=== PATIENT | male | born 1990 | race Caucasian/White ===

== ENCOUNTER 2019-06-19 13:51 | Emergency (ER) | payer BC, SELFPAY ==
[2019-06-19 13:52] VITALS: BP 155/73; PULSE 87; RESP 28; TEMP 36.7; O2SAT 97; BMI 44.1
--- NOTE | 2019-06-19 14:18 | ED.RN ---
pain started suddenly in right flank area. now wraps around lower abd
--- NOTE | 2019-06-19 14:28 | CT_ITS ---
STUDY: CT ABDOMEN AND PELVIS WITHOUT CONTRAST REASON FOR EXAM: Male, 29 years old. 2 hour history of nausea vomiting and constipation. RADIATION DOSAGE (If Supplied By Facility): CTDIvol = ( 24.18 ) mGy, DLP = ( 1371.27 ) mGycm TECHNIQUE: Transaxial images were obtained from the dome of the diaphragm to the symphysis pubis without oral contrast, and without intravenous contrast. Sagittal and coronal images were reconstructed. Individualized dose optimization techniques were used for this CT. COMPARISON: None. FINDINGS: The visualized lung bases are unremarkable. The visualized portions of the heart are within normal limits. There is decreased attenuation of the liver consistent with steatosis. Normal gallbladder and extrahepatic biliary system. Normal spleen. Normal pancreas. Normal bilateral adrenal glands. Mild to moderate degree of right hydronephrosis and right hydroureter due to a 4.3 mm calculus at the right ureterovesical junction. A punctate calcification is also seen in the lower pole calyx of the right kidney. Nonobstructive calculus in the midportion of the left kidney. There is dilatation of the left ureter. This may be reflective of vesicoureteral reflux. There is a small hiatal hernia. Normal small intestine. Normal colon. The appendix is visualized and appears normal. Normal abdominal aorta. Normal inferior vena cava. Normal retroperitoneum. Normal urinary bladder. There are prostatic calcifications. Normal abdominal wall. Normal osseous structures. CT/Abdomen/Pelvis without Cont IMPRESSION: 4.3 mm calculus at the right ureterovesical junction causing right hydronephrosis and hydroureter. Left hydroureter. Fatty infiltration of the liver. Electronically Signed: Ajit Wilks, at 15:20 EST , Service support ,
[2019-06-19] MEDS: Ondansetron 4 MG/2 ML Vial IV (14:36)
[2019-06-19] MEDS: Morphine 4 MG/ML Syringe IV (14:36)
--- NOTE | 2019-06-19 14:36 | ED.DCSUM_ITS ---
- ER Visit Summary Date of Service: 06/19/19 Chief Complaint: Right flank pain History of Present Illness: The patient is a 29 M presenting with right flank pain. He states this started 2 hours ago. Patient has severe pain in his right flank radiating to the right lower quadrant. He has nausea vomiting. No history of kidney stones. He is unable to sit still. Physical Examination: Vitals are stable. Patient is afebrile. Alert moderate acute distress. HEENT exam is unremarkable. Neck is supple. Lungs are clear and equal bilaterally. Heart is regular rate and rhythm. Abdomen is soft nontender nondistended. Back right CVA tenderness Extremities are unremarkable. Skin is warm and dry. No focal neurologic deficit. Remainder of exam is unremarkable. Emergency Department Course and Treatment: Patient was given morphine, Zofran IV. Urinalysis shows 0 white blood cells, over 100 red blood cells. Patient continues to have pain and was given Dilaudid IV. CT abdomen pelvis shows 4.3 mm calculus at the right ureterovesical junction causing right hydronephrosis and hydroureter. Left hydroureter. Fatty infiltration of the liver. Patient was given Toradol IV. On reevaluation his pain is controlled. He is given prescription for Percocet and Zofran. Advised to follow-up with urology. Advised return to ED for worsening complaints. Disposition: Discharge home Impression: Urolithiasis This note was generated with [employer] dictation software. It may contain incorrect words, spelling, and punctuation that were not noted in review of the chart prior to signing ED Disposition - Plan for ED Patient: Instructions: KIDNEY STONE w/ Colic Prescriptions: Oxycodone HCl/Acetaminophen [Percocet 5/325] 1 tab PO Q6H PRN PRN 3 Days #12 tab PRN Reason: Pain Prescription Printed Ondansetron [Zofran Odt] 4 mg PO Q8H PRN PRN #10 tab PRN Reason: Nausea Prescription Printed Referrals: Benja Marrufo MD [STAFF PHYSICIAN] - Gayathri Salinas NP-C [Primary Care Provider] -
[2019-06-19] MEDS: HYDROmorphone 1 MG/ML Syringe IV (15:08)
[2019-06-19] MEDS: Ketorolac 30 MG/ML Syringe IV (16:11)
[2019-06-19 16:17] VITALS: BP 188/90; PULSE 94; RESP 16; O2SAT 97
[2019-06-19 16:19] LABS: Mucous, Urine 0 SEEN /hpf (<or=2+); Squamous Epithelial Cells - UA 0 SEEN /hpf (0-5); White Blood Cells 0 SEEN /hpf (0-5)
[2019-06-19 16:24] LABS: Color, Urine Yellow (Yellow); Glucose, Dipstick Normal (Normal); Ketone-Dipstick Negative (Negative); Leukocyte Esterase-Dipstick Negative /ul (Negative); Nitrite-Dipstick Negative (Negative); Occult Blood-Urine 250 /ul (Negative); Protein-Dipstick 15 mg/dl (Negative); Specific Gravity, Urine 1.015 (1.002-1.030); Urine Bilirubin Dipstick Negative (Negative); Urine Clarity Cloudy (Clear); Urine Urobilinogen Normal (Normal)
[2019-06-19 16:42] LABS: Bacteria 1+ /hpf (None Seen); Red Blood Cells-Urine > 100 SEEN /hpf (0-5)
--- NOTE | 2019-06-19 17:16 | ED.DEP ---
ED Disposition - Plan for ED Patient: Instructions: KIDNEY STONE w/ Colic Prescriptions: Oxycodone HCl/Acetaminophen [Percocet 5/325] 1 tablet PO Q6H PRN PRN 3 Days #12 tablet PRN Reason: Pain Ondansetron [Zofran Odt] 4 mg PO Q8H PRN PRN #10 tablet PRN Reason: Nausea Referrals: Gayathri Salinas NP-C [Primary Care Provider] - Benja Marrufo MD [STAFF PHYSICIAN] -
[2019-06-19 17:26] VITALS: BP 146/87; PULSE 87; RESP 18; O2SAT 99
[2019-06-19 17:39] VITALS: BP 158/76; PULSE 66; RESP 16; O2SAT 95
== END 2019-06-19 17:37 | disposition home or self-care (01) ==
LOC: ED 14:38
PROVIDERS: Emergency Provider Emergency Medicine; Family Provider Nurse Practitioner Family; PCP Nurse Practitioner Family
DX: N13.2 Hydronephrosis with renal and ureteral calculous obstruction (principal)
CPT/HCPCS: 74176; 81001; 96374; 96375; 99283; A4216; J2405

== ENCOUNTER 2022-01-16 07:40 | Outpatient (RCR) | payer BC, SELFPAY | END 2022-02-08 23:59 | LOC: NS 07:40 | PROVIDERS: PCP Nurse Practitioner Family; Referring Provider Podiatrist Foot & Ankle Surgery; Visit Provider Podiatrist Foot & Ankle Surgery | DX: Z71.3 Dietary counseling and surveillance (principal); E66.01 Morbid (severe) obesity due to excess calories; Z68.42 Body mass index [BMI] 45.0-49.9, adult; M10.071 Idiopathic gout, right ankle and foot ==

== ENCOUNTER 2025-07-18 20:13 | Emergency (ER) | payer OTHER, SELFPAY ==
[2025-07-18 20:14] VITALS: BP 195/122; PULSE 100; RESP 18; TEMP 37; O2SAT 98; BMI 44.2
--- NOTE | 2025-07-18 20:37 | EX.ED.GUMALE ---
HPI History of Present Illness Chief Complaint: Male Pain/Injury Narrative Narrative: Chief complaint and HPI: 35-year-old male with past medical history of gout presents for evaluation of paraphimosis. Patient states that he retracted his foreskin behind the glans penis while taking a shower to clean it. He states that he was unable to retract his foreskin forward. He states has been about 3 hours. Endorses pain to the penis. He is still able to urinate. He denies any fever, chills, nausea, vomiting, testicular pain. Review of systems: See HPI Medications: As listed on the chart Allergies: As listed on the chart PFSH: Per chart Vital signs: As listed on the chart. Reviewed. Physical exam: Gen: Alert ENT: Moist mucous membranes CV: RRR, no murmurs Resp: Lungs CTA BL, no w/r/c GI: Abd soft, non-distended, non-tender, no r/r/g : Uncircumcised penis. Patient has swelling to the penile head and foreskin secondary to a paraphimosis. Tenderness where the swelling is located. No penile discharge or blood. No testicular pain or swelling. Normal lie and position of the testicles. No testicular tenderness, masses, or skin changes. No rashes. [facility] Medical History (Updated 05/22/22 @ 15:[address] Antelmo Mclaughlin MD) Request for sterilization Gout Home Medications ?Medication ?Instructions ?Recorded ?Last Taken ?Type colchicine 0.6 mg tablet 0.6 mg PO BID 05/22/22 Unknown History testosterone cypionate 200 mg/mL 60 mg IM 07/18/25 Unknown History intramuscular oil Allergy/AdvReac Type Severity Reaction Status Date / Time No Known Allergies Allergy Verified 07/18/25 20:16 Family History (Updated 05/22/22 @ 14:51 by Samantha Monique) Grandmother Heart disease High cholesterol Father Cancer skin cancer Surgical History (Updated 05/22/22 @ 14:42 by Samantha Monique) No history of previous surgery Social History (Updated 05/22/22 @ 14:43 by Samantha Monique) Smoking Status: Never smoker alcohol intake: current substance use type: does not use EXAM Physical Exam Const Vital Signs: 07/18/25 20:14 Temperature 98.6 F Temperature Source Temporal Pulse Rate 100 Respiratory Rate 18 Blood Pressure 195/122 H Blood Pressure Mean 146 Pulse Ox 98 Oxygen Delivery Method Room Air MDM MDM MDM Narrative Medical decision making narrative: 35-year-old male with past medical history of gout presents for evaluation of paraphimosis. Patient states that he retracted his foreskin behind the glans penis while taking a shower to clean it. He states that he was unable to retract his foreskin forward. He states has been about 3 hours. Endorses pain to the penis. See physical exam findings. Patient has a paraphimosis. I originally tried to retract the foreskin over the glans penis but was unable to. I offered pain medicine before attempting swelling reduction with handgrip. Patient declined pain medicine. I firmly grasp the patient's penis and applied pressure to decrease swelling. After several minutes, I was able to decrease the swelling and was able to retract the foreskin over the glans penis. Patient's pain resolved with this. the glans penis is still mildly swollen. Will obtain UA to assess for UTI and make sure that the patient can urinate prior to discharge home. Will reach out to urology for any further recommendations. I spoke with Dr. Marrufo. No further recommendations at this time although he states that the patient should not retract his foreskin until the swelling improves. Patient was updated of the results by the urologist. Patient was able to urinate and awaiting UA. Patient stated that he wanted to leave and did not want to stay for results. I did recommend him staying for the UA results. He confirmed understanding and agreed. Shortly after I was informed by nursing staff that patient had eloped. On chart review, UA did result positive for blood but was negative for UTI. Impression: 1. Paraphimosis, reduced 2. Elopement Lab Data Labs: Laboratory Results - last 24 hr 07/18/25 21:37 Urine Color Yellow Urine Clarity Clear Urine pH 6.0 Ur Specific Mustang 1.020 Urine Protein 15 H Urine Glucose (UA) Normal Urine Ketones Negative Urine Occult Blood 10 H Urine Nitrite Negative Urine Bilirubin Negative Urine Urobilinogen Normal Ur Leukocyte Esterase Negative Urine RBC 0-5 SEEN Urine WBC 0-5 SEEN Ur Squamous Epith Cells 0 SEEN Urine Bacteria 0 SEEN Urine Mucus 0 SEEN Discharge Plan Triage Chief Complaint: Male Pain/Injury ED Provider: Neftaly Merino Dx/Rx/DC Orders Prescriptions: No Action colchicine 0.6 mg tablet 0.6 mg PO BID testosterone cypionate 200 mg/mL oil 60 mg IM Primary Care Provider: Care Physician,No Primary Referrals: Gayathri Salinas NP, [employer] [facility] [Non-Staff, Family Practice] Print Language: Yi Disposition Disposition: Elopement Discharge Date/Time: 07/18/25 21:53
--- OUTSIDE RECORDS SUMMARY | 2025-07-18 20:49 | XMS RPT_ITS | CCD ---
Author Organization [facility] Care Team Providers Care Manager Requirements Name Role Phone Gayathri Salinas Primary Care Unavailable SuppanEdilson Referring Unavailable SuppanEdilson Attending Unavailable Gayahtri Salinas Primary Care Unavailable Suppan Edilson Referring Unavailable SuppanIrvingEdilson Attending Unavailable Gayathri Salinas Primary Care Unavailable Antelmo Mclaughlin Attending Unavailable Gayathri Salinas Referring Unavailable Unavailable Primary Care Provider Gayathri Alcaraz (Software Quality Engineer) Primary Care Provider [phone] JOHNY, AMBREESH Referring Unavailable ABDELRAHMAN ARANDAREESJeaneth Attending Unavailable JOHNY AMBREESH Referring Unavailable GAYATHRI SALINAS (PLASTIC BOAT BUFFER) Primary Care GAYATHRI Alcaraz (PLASTIC BOAT BUFFER) Primary Care [place] PLASTIC BOAT BUFFERGayathri Primary Care Provider Allergies Allergy Classification Reported Allergen(s) Allergy Type Date of Onset Reaction(s) Facility (14 sources) Pollen; Translations: [POLLEN] Propensity to adverse reactions 6 Other: See Comments [facility] Medications Current Medications Medication Drug Class(es) Dates Sig (Normalized) Sig (Original) allopurinol 300 mg oral tablet (15 sources) Xanthine Oxidase Inhibitor Start: 10-06-2024 take 1 tablet by mouth once daily allopurinol (ZYLOPRIM) 300 mg tablet Take 1 tablet by mouth once daily. 90 tablet 1 10/06/2024 Active Start: 05-28-2023 End: 10-04-2024 take 1 tablet by mouth once daily allopurinol (ZYLOPRIM) 300 mg tablet Take 1 tablet by mouth once daily. 90 tablet 1 05/28/2023 10/04/2024 Discontinued Start: 01-10-2023 End: 09-24-2023 take 2 tablets by mouth once daily allopurinol (ZYLOPRIM) 100 mg tablet Indications: Acute idiopathic gout, unspecified site Take 2 tablets by mouth once daily. 60 tablet 0 03/28/2023 09/24/2023 Active Start: 08-29-2022 End: 02-25-2023 take 1 tablet by mouth once daily allopurinol (ZYLOPRIM) 100 mg tablet Take 1 tablet by mouth once daily. 90 tablet 1 08/29/2022 01/09/2023 Discontinued Comment on above: Take 1 tablet by nikita once daily. Take 2 tablets by mo [facility] once daily. colchicine 0.6 mg oral tablet (11 sources) Start: 3 End: 4 take 1 tablet by mouth once daily colchicine 0.6 mg tablet Take 1 tablet by mouth once daily. 30 tablet 2 05/21/2023 Active Comment on above: Take 1 tablet by nikita once daily. Take 1 tablet by nikita once daily ondansetron 4 mg disintegrating oral tablet (1 source) Serotonin-3 Receptor Antagonist Start: 9 take 4 mg by mouth every eight hours as needed Ondansetron Active 4 MG PO EVERY 8 HOURS NEEDED June 19, 2019 1:00am predniSONE 10 mg oral tablet (6 sources) Start: 3 End: 3 take 3 tablets by mouth once daily, then take 2 tablets by mouth once daily, then take 1 tablet by mouth once daily, then take 0.5 tablet by mouth once daily predniSONE (DELTASONE) 10 mg tablet Take 3 tablets by mouth once daily for 3 days, THEN 2 tablets once daily for 3 days, THEN 1 tablet once daily for 3 days, THEN 0.5 tablets once daily for 3 days. 20 tablet 0 05/21/2023 06/02/2023 Active Start: 11-07-2022 End: 11-19-2022 take 6 tablets by mouth once daily, then take 4 tablets by mouth once daily, then take 2 tablets by mouth once daily, then take 1 tablet by mouth once daily predniSONE (DELTASONE) 5 mg tablet Take 6 tablets by mouth once daily for 3 days, THEN 4 tablets once daily for 3 days, THEN 2 tablets once daily for 3 days, THEN 1 tablet once daily for 3 days. 39 tablet 0 11/07/2022 11/19/2022 Active Start: 08-27-2022 End: 09-16-2022 take 4 tablets by mouth once daily, then take 3 tablets by mouth once daily, then take 2 tablets by mouth once daily, then take 1 tablet by mouth once daily predniSONE (DELTASONE) 5 mg tablet Take 4 tablets by mouth once daily for 5 days, THEN 3 tablets once daily for 5 days, THEN 2 tablets once daily for 5 days, THEN 1 tablet once daily for 5 days. 50 tablet 0 08/27/2022 09/16/2022 Active Comment on above: Take 4 tablets by mo ut once daily for 5 days, THEN 3 tablets once daily for 5 days, THEN 2 tablets once daily for 5 days, THEN 1 tablet once daily for 5 days. Take 6 tablets by mo ut once daily for 3 days, THEN 4 tablets once daily for 3 days, THEN 2 tablets once daily for 3 days, THEN 1 tablet once daily for 3 days. Take 3 tablets by mo ut once daily for 3 days, THEN 2 tablets once daily for 3 days, THEN 1 tablet once daily for 3 days, THEN 0.5 tablets once daily for 3 days. 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] Onset: 11-25-2023 Chronic Disorders of lipid metabolism (3 sources) Hyperlipidemia, unspecified; Translations: [Pure hyperglyceridemia] Onset: 10-14-2023 Chronic Gout and other crystal arthropathies (9 sources) Primary gout; Translations: [Idiopathic gout, unspecified site] Onset: 05-21-2023 Chronic Malaise and fatigue (1 source) Chronic fatigue, unspecified; Translations: [Chronic fatigue] Onset: 11-25-2023 Chronic Mood disorders (1 source) Major depressive disorder, recurrent, unspecified; Translations: [Chronic recurrent major depressive disorder (HCC)] Onset: 11-25-2023 Chronic Nutritional deficiencies (1 source) Vitamin D deficiency, unspecified; Translations: [Avitaminosis D] Onset: 11-25-2023 Chronic Other connective tissue disease (4 sources) History of clinical finding in subject; Translations: [Personal history of other diseases of the musculoskeletal system and connective tissue] Episodic Other endocrine disorders (1 source) Testicular hypofunction; 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] Onset: 11-25-2023 Chronic Other endocrine disorders (1 source) Endocrine disorder, unspecified; Translations: [Unspecified endocrine disorder] Onset: 02-07-2024 Episodic Other male genital disorders (1 source) Male erectile dysfunction, unspecified; Translations: [Impotence of organic origin] Onset: 11-25-2023 Chronic Other male genital disorders (1 source) Unspecified male sexual dysfunction; Translations: [Male coital disorder] Onset: 11-25-2023 Episodic Other non-traumatic joint disorders (6 sources) Multiple joint pain; Translations: [Pain in unspecified joint] Episodic Other nutritional; endocrine; and metabolic disorders (2 sources) Morbid (severe) obesity due to excess calories; Translations: [Morbid (severe) obesity due to excess calories] Onset: 02-09-2022 Chronic Other nutritional; endocrine; and metabolic disorders (1 source) Obesity, unspecified; Translations: [Lifelong obesity] Onset: 02-07-2024 Chronic Other nutritional; endocrine; and metabolic disorders (1 source) Abnormal weight gain; Translations: [Abnormal weight gain] Onset: 11-25-2023 Episodic Other skin disorders (1 source) Nonscarring hair loss, unspecified; Translations: [Baldness] Onset: 11-25-2023 Episodic Residual codes; unclassified (1 source) Insomnia, unspecified; Translations: [Persistent disorder of initiating or maintaining sleep] Onset: 11-25-2023 Episodic Residual codes; unclassified (1 source) Decreased libido; Translations: [Decreased libido] Onset: 11-25-2023 Episodic Residual codes; unclassified (1 source) Other amnesia; Translations: [Memory loss] Onset: 11-25-2023 Episodic Screening and history of mental health and substance abuse codes (2 sources) Tobacco smoking behavior - finding; Translations: [Personal history of nicotine dependence] Episodic Viral infection (1 source) Viral disease; Translations: [Viral infection, unspecified] 12-04-2023 Episodic Past or Other Problems Problem Classification Problem Date Documented Da te Episodic/Chronic Administrative/social admission (2 sources) Dietary counseling and surveillance; Translations: [Dietary counseling and surveillance] Onset: 02-09-2022 Episodic Other non-traumatic joint disorders (1 source) Pain in unspecified joint; Translations: [Pain in joint, multiple sites] Onset: 05-21-2023 Episodic Results Test Name Value Interpretation Reference Range Facility 25(OH)D3 [facility] 2023 25-hydroxyvitamin D3 [Mass/Vol] 38.4 ng/mL Normal 31.0-80.0 [facility] Comment on above: Order Comment: Lili quinones Type: BLOOD SPECIMEN Ordering Facility: External Submitter Address: , , Result Comment: Clas sification of 25 OH Vitamin D status: Deficiency/Insufficiency: < or = 30 ng/ml. Sufficiency/Optimal Levels: 31-80 ng/mL Toxicity: > 100 ng/mL. Test performed by chemiluminescent immunoassay. Performed By: #### 5 8410-2 #### [facility] CLIA [id number] [address] [place] [address] [place] CBC panel Auto (Bld)on 02-06 Erythrocyte distribution width (RBC) [Ratio] 14.6 % Normal 11.5-15.0 [facility] Comment on above: Order Comment: Lili quinones Type: BLOOD SPECIMEN Ordering Facility: External Submitter Address: , , Performed By: #### 5 8410-2 #### [facility] CLIA [id number] [address] [place] [address] [place] Hematocrit (Bld) [Volume fraction] 54.4 % High 39.0-51.0 [facility] Comment on above: Order Comment: Lili quinones Type: BLOOD SPECIMEN Ordering Facility: External Submitter Address: , , Performed By: #### 5 8410-2 #### [facility] CLIA [id number] [address] [place] [address] [place] Hemoglobin (Bld) [Mass/Vol] 17.3 g/dL High 13.0-17.0 [facility] Comment on above: Order Comment: Speci men Type: BLOOD SPECIMEN Ordering Facility: External Submitter Address: , , Performed By: #### 5 8410-2 #### [facility] CLIA [id number] [address] [place] [address] [place] MCH (RBC) [Entitic mass] 26.5 pg Normal 26.0-34.0 [facility] Comment on above: Order Comment: Speci men Type: BLOOD SPECIMEN Ordering Facility: External Submitter Address: , , Performed By: #### 5 8410-2 #### [facility] CLIA [id number] [address] [place] [address] [place] MCHC (RBC) [Mass/Vol] 31.8 g/dL Normal 30.5-36.0 [facility] Comment on above: Order Comment: Speci men Type: BLOOD SPECIMEN Ordering Facility: External Submitter Address: , , Performed By: #### 5 8410-2 #### [facility] CLIA [id number] [address] [place] [address] [place] MCV (RBC) [Entitic vol] 83.3 fL Normal 80.0-100.0 [facility] Comment on above: Order Comment: Speci men Type: BLOOD SPECIMEN Ordering Facility: External Submitter Address: , , Performed By: #### 5 8410-2 #### [facility] CLIA [id number] [address] [place] [address] [place] Nucleated RBC (Bld) [#/Vol] 10*3/uL Normal <0.01 [facility] Comment on above: Order Comment: Speci men Type: BLOOD SPECIMEN Ordering Facility: External Submitter Address: , , Performed By: #### 5 8410-2 #### [facility] CLIA [id number] [address] [place] [address] [place] Platelet mean volume (Bld) [Entitic vol] 12.4 fL Normal 9.0-12.7 [facility] Comment on above: Order Comment: Speci men Type: BLOOD SPECIMEN Ordering Facility: External Submitter Address: , , Performed By: #### 5 8410-2 #### [facility] CLIA [id number] [address] [place] [address] [place] Platelets (Bld) [#/Vol] 217 10*3/uL Normal 150-400 [facility] Comment on above: Order Comment: Speci men Type: BLOOD SPECIMEN Ordering Facility: External Submitter Address: , , Performed By: #### 5 8410-2 #### [facility] CLIA [id number] [address] [place] [address] [place] RBC (Bld) [#/Vol] 6.53 10*6/uL High 4.20-6.00 [facility] Comment on above: Order Comment: Speci men Type: BLOOD SPECIMEN Ordering Facility: External Submitter Address: , , Performed By: #### 5 8410-2 #### [facility] CLIA [id number] [address] [place] [address] [place] WBC (Bld) [#/Vol] 8.27 10*3/uL Normal 3.70-11.00 [facility] Comment on above: Order Comment: Speci men Type: BLOOD SPECIMEN Ordering Facility: External Submitter Address: , , Performed By: #### 5 8410-2 #### [facility] CLIA [id number] [address] [place] [address] [place] Comprehensive metabolic 2000 panelon 02-07-2024 Albumin [Mass/Vol] 4.4 g/dL Normal 3.9-4.9 [facility] Comment on above: Order Comment: Speci men Type: BLOOD SPECIMEN Ordering Facility: External Submitter Address: , , Performed By: #### 5 8410-2 #### [facility] CLIA [id number] [address] [place] [address] [place] ALP [Catalytic activity/Vol] 67 U/L Normal 38-113 [facility] Comment on above: Order Comment: Speci men Type: BLOOD SPECIMEN Ordering Facility: External Submitter Address: , , Performed By: #### 5 8410-2 #### [facility] CLIA [id number] [facility] [place] [address] [place] ALT [Catalytic activity/Vol] 18 U/L Normal 10-54 [facility] Comment on above: Order Comment: Speci men Type: BLOOD SPECIMEN Ordering Facility: External Submitter Address: , , Performed By: #### 5 8410-2 #### [facility] CLIA [id number] [address] [place] [address] [place] Anion gap [Moles/Vol] 10 mmol/L Normal 8-15 [facility] Comment on above: Order Comment: Speci men Type: BLOOD SPECIMEN Ordering Facility: External Submitter Address: , , Performed By: #### 5 8410-2 #### [facility] CLIA [id number] [address] [place] [address] [place] AST [Catalytic activity/Vol] 19 U/L Normal 14-40 [facility] Comment on above: Order Comment: Speci men Type: BLOOD SPECIMEN Ordering Facility: External Submitter Address: , , Performed By: #### 5 8410-2 #### [facility] CLIA [id number] [address] [place] [address] [place] Bilirubin [Mass/Vol] 0.5 mg/dL Normal 0.2-1.3 [facility] Comment on above: Order Comment: Speci men Type: BLOOD SPECIMEN Ordering Facility: External Submitter Address: , , Performed By: #### 5 8410-2 #### [facility] CLIA [id number] [address] [place] [address] [place] Calcium [Mass/Vol] 10.0 mg/dL Normal 8.5-10.2 [facility] Comment on above: Order Comment: Keeshai joni Type: BLOOD SPECIMEN Ordering Facility: External Submitter Address: , , Performed By: #### 5 8410-2 #### [facility] CLIA [id number] [address] [place] [address] [place] Chloride [Moles/Vol] 101 mmol/L Normal 98-107 [facility] Comment on above: Order Comment: Speci men Type: BLOOD SPECIMEN Ordering Facility: External Submitter Address: , , Performed By: #### 5 8410-2 #### [facility] CLIA [id number] [address] [place] [address] [place] CO2 [Moles/Vol] 26 mmol/L Normal 22-30 [facility] Comment on above: Order Comment: Keeshai men Type: BLOOD SPECIMEN Ordering Facility: External Submitter Address: , , Performed By: #### 5 8410-2 #### [facility] CLIA [id number] [address] [place] [address] [place] Creatinine [Mass/Vol] 0.98 mg/dL Normal 0.73-1.22 [facility] Comment on above: Order Comment: Keeshai joni Type: BLOOD SPECIMEN Ordering Facility: External Submitter Address: , , Performed By: #### 5 8410-2 #### [facility] CLIA [id number] [address] [place] [address] [place] Creatinine and Glomerular filtration rate.predicted panel (S/P/Bld) 104 mL/min/1.73m??? Normal >=60 [facility] Comment on above: Order Comment: Lili quinones Type: BLOOD SPECIMEN Ordering Facility: External Submitter Address: , , Result Comment: Zunilda mated Glomerular Filtration Rate (eGFR) is calculated using the 2020 CKD-EPI creatinine equation. This equation utilizes serum creatinine, sex, and age as parameters. The creatinine assay has traceable calibration to isotope dilution-mass spectrometry. Refer to KDIGO guidelines for clinical interpretation. In patients with unstable renal function, e.g. those with acute kidney injury, the eGFR may not accurately reflect actual GFR. Performed By: #### 5 8410-2 #### [facility] CLIA [id number] [address] [place] [address] [place] Glucose [Mass/Vol] 89 mg/dL Normal 74-99 [facility] Comment on above: Order Comment: Lili quinones Type: BLOOD SPECIMEN Ordering Facility: External Submitter Address: , , Result Comment: The [place] Diabetes [employer] (ADA) provides guidance for cutoff values for fasting glucose and random glucose. The ADA defines fasting as no caloric intake for at least 8 hours. Fasting plasma glucose results between 100 to 125 mg/dL indicate increased risk for diabetes (prediabetes). Fasting plasma glucose results greater than or equal to 126 mg/dL meet the criteria for diagnosis of diabetes. In the absence of unequivocal hyperglycemia, results should be confirmed by repeat testing. In a patient with classic symptoms of hyperglycemia or hyperglycemic crisis, random plasma glucose results greater than or equal to 200 mg/dL meet the criteria for diagnosis of diabetes. Reference: Standards of Medical Care in Diabetes 2016, [place] [employer]. Diabetes Care. 2016.39(Suppl 1). Performed By: #### 5 8410-2 #### [facility] CLIA [id number] [address] [place] [address] [place] Potassium [Moles/Vol] 4.9 mmol/L Normal 3.7-5.1 [facility] Comment on above: Order Comment: Lili quinones Type: BLOOD SPECIMEN Ordering Facility: External Submitter Address: , , Performed By: #### 5 8410-2 #### [facility] CLIA [id number] [address] [place], [place] [id number] [place] Protein [Mass/Vol] 7.1 g/dL Normal 6.3-8.0 [facility] Comment on above: Order Comment: Lili quinones Type: BLOOD SPECIMEN Ordering Facility: External Submitter Address: , , Performed By: #### 5 8410-2 #### [facility] CLIA [id number] [address] [place] [id number] [place] Sodium [Moles/Vol] 137 mmol/L Normal 136-144 [facility] Comment on above: Order Comment: Speci men Type: BLOOD SPECIMEN Ordering Facility: External Submitter Address: , , Performed By: #### 5 8410-2 #### [facility] CLIA [id number] [address] [place] [address] [place] Urea nitrogen [Mass/Vol] 19 mg/dL Normal 9-24 [facility] Comment on above: Order Comment: Speci men Type: BLOOD SPECIMEN Ordering Facility: External Submitter Address: , , Performed By: #### 5 8410-2 #### [facility] CLIA [id number] [address] [place] [address] [place] Estradiol [facility] 02-06 E2 [Mass/Vol] 27 pg/mL Normal <38 [facility] Comment on above: Order Comment: Speci men Type: BLOOD SPECIMEN Ordering Facility: External Submitter Address: , , Result Comment: This test is not suitable for patients receiving treatment with the drug Fulvestrant (Faslodex). The drug causes an interference leading to falsely elevated estradiol results. Performed By: #### 5 8410-2 #### [facility] CLIA [id number] [address] [place] [address] [place] Lipid 1996 panelon 4 Cholesterol [Mass/Vol] 212 mg/dL High <200 [facility] Comment on above: Order Comment: Speci men Type: BLOOD SPECIMEN Ordering Facility: External Submitter Address: , , Result Comment: <200 mg/dL, Desirable 200-239 mg/dL, Borderline high >239 mg/dL, High Performed By: #### 5 8410-2 #### [facility] CLIA [id number] [address] [place] [address] [place] Cholesterol in HDL [Mass/Vol] 24 mg/dL Low >39 [facility] Comment on above: Order Comment: Lili quinones Type: BLOOD SPECIMEN Ordering Facility: External Submitter Address: , , Result Comment: 40-5 9 mg/dL, Acceptable >59 mg/dL, High: Negative risk factor for coronary heart disease <40 mg/dL, Low: Positive risk factor for coronary heart disease Performed By: #### 5 8410-2 #### [facility] CLIA [id number] [address] [place] [address] [place] Cholesterol in LDL [Mass/Vol] 136 mg/dL High <100 [facility] Comment on above: Order Comment: Lili quinones Type: BLOOD SPECIMEN Ordering Facility: External Submitter Address: , , Result Comment: <100 mg/dL, Optimal 100-129 mg/dL, Near optimal/above optimal 130-159 mg/dL, Borderline high 160-189 mg/dL, High >189 mg/dL, Very high Secondary prevention optimal LDL Cholesterol levels are recommended to be < 70 mg/dL Performed By: #### 5 8410-2 #### [facility] CLIA [id number] [address] [place] [address] [place] Cholesterol in LDL/Cholesterol in HDL [Mass ratio] 5.67 {ratio} High <2.54 [facility] Comment on above: Order Comment: Lili quinones Type: BLOOD SPECIMEN Ordering Facility: External Submitter Address: , , Result Comment: Reffer mir: 1. National Cholesterol Education Program ATP III Guideline At-A-Glance Quick Desk Reference: National Heart, Lung, and Blood [place]. National Institutes of Health. 2001: NIH Publication No. 01-3305. 2. An International Atherosclerosis Society position paper: global recommendations for the management of dyslipidemia: executive summary, Atherosclerosis. 2014: 232(2):410-413. Performed By: #### 5 8410-2 #### [facility] CLIA [id number] [address] [place] [id number] [place] Cholesterol in VLDL [Mass/Vol] 52 mg/dL High <30 [facility] Comment on above: Order Comment: Speci men Type: BLOOD SPECIMEN Ordering Facility: External Submitter Address: , , Performed By: #### 5 8410-2 #### [facility] CLIA [id number] [address] [place] [address] [place] Cholesterol non HDL [Mass/Vol] 188 mg/dL High <130 [facility] Comment on above: Order Comment: Speci men Type: BLOOD SPECIMEN Ordering Facility: External Submitter Address: , , Result Comment: <130 mg/dL, Optimal 130-159 mg/dL, Near optimal/above optimal 160-189 mg/dL, Borderline high 190-219 mg/dL, High >219 mg/dL, Very high Secondary prevention optimal non HDL Cholesterol levels are recommended to be <100 mg/dL Performed By: #### 5 8410-2 #### [facility] CLIA [id number] [address] [place] [address] [place] Cholesterol.total /Cholesterol in HDL [Mass ratio] 8.83 {ratio} High <5.10 [facility] Comment on above: Order Comment: Speci men Type: BLOOD SPECIMEN Ordering Facility: External Submitter Address: , , Performed By: #### 5 8410-2 #### [facility] CLIA [id number] [address] [place] [address] [place] FASTING TIME 12 hrs Normal [facility] Comment on above: Order Comment: Speci men Type: BLOOD SPECIMEN Ordering Facility: External Submitter Address: , , Performed By: #### 5 8410-2 #### [facility] CLIA [id number] [address] [place] [address] [place] Triglyceride [Mass/Vol] 261 mg/dL High <150 [facility] Comment on above: Order Comment: Speci men Type: BLOOD SPECIMEN Ordering Facility: External Submitter Address: , , Result Comment: <150 mg/dL, Normal 150-199 mg/dL, Borderline high 200-499 mg/dL, High >499 mg/dL, Very high Performed By: #### 5 8410-2 #### [facility] CLIA [id number] [facility] [place] [address] [place] PSA SerPl-mCncon 02-07-2024 Prostate specific Ag [Mass/Vol] 0.60 ng/mL Normal <2.60 [facility] Comment on above: Order Comment: Speci men Type: BLOOD SPECIMEN Ordering Facility: External Submitter Address: , , Result Comment: Tota l PSA test methodology used is the Electrochemiluminescence Immunoassay by [employer]. Total PSA values by differing methodologies cannot be interchanged. Performed By: #### 5 8410-2 #### [facility] IA [id number] [address] [place] [address] [place] T3Free SerPl-mCncon 02-07-20 Free T3 [Mass/Vol] 2.8 pg/mL Normal 2.3-4.1 [facility] Comment on above: Order Comment: Speci men Type: BLOOD SPECIMEN Ordering Facility: External Submitter Address: , , Performed By: #### 5 8410-2 #### [facility] IA [id number] [address] [place] [address] [place] T4 Free SerPl-mCncon 024 Free T4 [Mass/Vol] 1.2 ng/dL Normal 0.9-1.7 [facility] Comment on above: Order Comment: Speci men Type: BLOOD SPECIMEN Ordering Facility: External Submitter Address: , , Performed By: #### 5 8410-2 #### [facility] IA [id number] [address] [place] [address] [place] TESTOSTERONE, FREE AND TOTAL on 02-07-2024 TESTOSTERONE, FREE, S 25.0 ng/dL High 4.85-19.0 [facility] Comment on above: Order Comment: Speci men Type: BLOOD SPECIMEN Ordering Facility: External Submitter Address: , , Result Comment: ADDITIONAL INFORMATION This test was developed and its performance characteristics determined by [facility] in a manner consistent with CLIA requirements. This test has not been cleared or approved by the U.S. Food and Drug Administration. Performed By: #### 5 8410-2 #### [facility] CLIA [id number] [address] [place] [address] [place] TESTOSTERONE, TOTAL, S 653 ng/dL Normal 240-950 [facility] Comment on above: Order Comment: Speci men Type: BLOOD SPECIMEN Ordering Facility: External Submitter Address: , , Result Comment: ADDITIONAL INFORMATION Testing performed by Liquid Chromatography-Tandem Mass Spectrometry (LC-MS/MS). This test was developed and its performance characteristics determined by [facility] in a manner consistent with CLIA requirements. This test has not been cleared or approved by the U.S. Food and Drug Administration. Test Performed by: [place] [address] [employer] Reviewer: Derek Viera Ph.D.; CLIA# [id number] Performed By: #### 5 8410-2 #### [facility] CLIA [id number] [address] [place] [address] [place] THYROID PEROXIDASE ANTIBODYo n 02-07-2024 TPO Ab Qn 168.4 [IU]/mL High <5.6 [facility] Comment on above: Order Comment: Specflavio quinones Type: BLOOD SPECIMEN Ordering Facility: External Submitter Address: , , Result Comment: Thyr oid Peroxidase Antibody test is used as an aid in diagnosis of autoimmune thyroid disease. Clinical correlation is required. Performed By: #### M ICRO #### [facility] CLIA [id number] [address] [place] [address] [place] TSH SerPl-aCncon 02-07-2024 TSH Qn 1.930 m[IU]/L Normal 0.270-4.200 [facility] Comment on above: Order Comment: Lili quinones Type: BLOOD SPECIMEN Ordering Facility: External Submitter Address: , , Performed By: #### 5 8410-2 #### [facility] CLIA [id number] [address] [place] [address] OF [facility] Vit B12 SerPl-ncon 0628-2 024 Cobalamin (Vitamin B12) [Mass/Vol] 572 pg/mL Normal 232-1245 [facility] Comment on above: Order Comment: Speci joni Type: BLOOD SPECIMEN Ordering Facility: External Submitter Address: , , Performed By: #### 5 8410-2 #### [facility] CLIA [id number] [address] [place] [address] OF [facility] CNOVon 12-04-2023 CNOV Office Visit (UCWSTR ) UBALDO REHMAN ([id number]) 1990 M Date Time Provider Department 12/04/23 1:45 PM LAM SOSA [facility] During your visit today, we recorded the following information about you: Temperature Pulse Respiration Blood pressure 97.6 degrees 87/minute 21/minute 154/100 Weight 131.3 kg Lam Sosa PA-C 12/04/2023 2:00 PM Signed This note was created using 25eightriter. Subjective Ubaldo Rehman is a 33 year old male. HPI Patient presents with sore throat and headache since this morning. He is also had a cough. Denies nasal congestion or ear pain. No vomiting or diarrhea. No chest pain or shortness of breath. No abdominal pain. His friend had strep throat recently so he just wanted to come in and be tested. No OTC meds used. Review of Systems Constitutional: Negative. HENT: Positive for sore throat. Negative for congestion, ear pain, rhinorrhea, sinus pressure and sinus pain. Respiratory: Positive for cough. Genitourinary: Negative. Musculoskeletal: Negative. Neurological: Positive for headaches. All other systems reviewed and are negative. PAST MEDICAL HISTORY Diagnosis Date concussion 8th grade fell off horse PMH - PAST MEDICAL HISTORY OF 03/29/2000 normal color vision PMH - PAST MEDICAL HISTORY OF 09/2002 glasses/speech therapy PMH - PAST MEDICAL HISTORY OF 7th grade left ankle torn ligaments PMH - PAST MEDICAL HISTORY OF 8th grade right wrist injury Current Outpatient Medications Medication Sig Dispense Refill allopurinol (ZYLOPRIM) 300 mg tablet Take 1 tablet by mouth once daily. 90 tablet 1 colchicine 0.6 mg tablet Take 1 tablet by mouth once daily. 30 tablet 2 No current facility-administered medications for this visit. PAST SURGICAL HISTORY Procedure Laterality Date NONE FAMILY HISTORY Problem Relation Age of Onset Arthritis Paternal Grandmother Hypertension Maternal Grandmother Heart Maternal Grandmother Emphysema Maternal Grandfather Social History Tobacco Use Smoking status: Former Types: Cigarettes Quit date: 08/04/2009 Years since quittin.3 Smokeless tobacco: Never Tobacco comments: cigars occasionally 1/wk Substance Use Topics Alcohol use: Yes Alcohol/week: 6.0 standard drinks of alcohol Types: 6 Cans of Beer (12oz) per week Drug use: No Objective BP 154/100 Pulse 87 Temp 36.4 ?C (97.6 ?F) Resp 21 Wt 131.3 kg (289 lb 7.4 oz) SpO2 98% BMI 44.01 kg/m? Physical Exam Vitals reviewed. Constitutional: Appearance: Normal appearance. HENT: Head: Normocephalic and atraumatic. Right Ear: Tympanic membrane, ear canal and external ear normal. Left Ear: Tympanic membrane, ear canal and external ear normal. Nose: Nose normal. Mouth/Throat: Mouth: Mucous membranes are moist. Pharynx: Posterior oropharyngeal erythema present. No oropharyngeal exudate. Cardiovascular: Rate and Rhythm: Normal rate and regular rhythm. Heart sounds: Normal heart sounds. Pulmonary: Effort: Pulmonary effort is normal. Breath sounds: Normal breath sounds. Musculoskeletal: Cervical back: Neck supple. Skin: General: Skin is warm and dry. Findings: No rash. Neurological: Mental Status: He is alert. Assessment and Plan ASSESSMENT/PLAN: 1. Viral illness - ICD9: 079.99, ICD10: B34.9 - Discussed viral etiology and rationale for treatment. - Group A strep molecular testing negative - Symptomatic treatment with prn analgesia - Supportive care with fluids and rest - The patient may also use warm salt water gargles, throat lozenges and/or OTC throat spray as needed. - Follow up in 3-5 days if symptoms persist or sooner if worsening of symptoms Lam Sosa PA-C Allergies As of Date: 12/04/2023 Noted Allergy Reaction POLLEN 03/12/2006 14 - Other: See Comments Comments: runny nose, watery eyes Date Reviewed: 12/04/2023 Reviewed by: Jyoti Calvo MA - Fully Assessed Reason for Visit: Sore Throat [200] Cmt: SHERMAN started today Primary Visit Diagnosis:Viral illness [B34.9] Order(s):STREP A MOLECULAR (POC) [0803054] Order #: [id number]. #:[id number] Prescriptions as of 12/04/2023 - allopurinol (ZYLOPRIM) 300 mg tablet Take 1 tablet by mouth once daily. - colchicine 0.6 mg tablet Take 1 tablet by mouth once daily. Problem List As Of Date: 12/04/2023 (None) Encounter Status:Closed by LAM SOSA on 12/04/23 Normal [facility] STREP A MOLECULAR (POC)on Procedural Control Valid [facility] Strep A (POCT) Negative Negative [facility] CBC panel Auto (Bld)on 11-24 Erythrocyte distribution width (RBC) [Ratio] 14.6 % Normal 11.5-15.0 [facility] Comment on above: Order Comment: Lili quinones Type: BLOOD SPECIMEN Ordering Facility: [facility] Address: [address] [place] [address] Performed By: #### 5 7021-8 #### [facility] CLIA [id number] [facility] [address] [place] Hematocrit (Bld) [Volume fraction] 51.4 % High 39.0-51.0 [facility] Comment on above: Order Comment: Specflavio quinones Type: BLOOD SPECIMEN Ordering Facility: [facility] Address: [address] [place] [address] Performed By: #### 5 7021-8 #### [facility] CLIA [id number] [address] [place] [address] [place] Hemoglobin (Bld) [Mass/Vol] 16.5 g/dL Normal 13.0-17.0 [facility] Comment on above: Order Comment: Speci men Type: BLOOD SPECIMEN Ordering Facility: [facility] Address: [address] [place] [address] Performed By: #### 5 7021-8 #### [facility] CLIA [id number] [address] [place] [address] [place] MCH (RBC) [Entitic mass] 26.7 pg Normal 26.0-34.0 [facility] Comment on above: Order Comment: Speci men Type: BLOOD SPECIMEN Ordering Facility: [facility] Address: [address] [place] [address] Performed By: #### 5 7021-8 #### [facility] CLIA [id number] [address] [place] [address] [place] MCHC (RBC) [Mass/Vol] 32.1 g/dL Normal 30.5-36.0 [facility] Comment on above: Order Comment: Speci men Type: BLOOD SPECIMEN Ordering Facility: [facility] Address: [address] [place] [address] Performed By: #### 5 7021-8 #### [facility] CLIA [id number] [address] [place] [address] [place] MCV (RBC) [Entitic vol] 83.3 fL Normal 80.0-100.0 [facility] Comment on above: Order Comment: Speci men Type: BLOOD SPECIMEN Ordering Facility: [facility] Address: [address] [place] [address] Performed By: #### 5 7021-8 #### [facility] CLIA [id number] [address] [place] [address] [place] Nucleated RBC (Bld) [#/Vol] 10*3/uL Normal <0.01 [facility] Comment on above: Order Comment: Speci men Type: BLOOD SPECIMEN Ordering Facility: [facility] Address: [address] [place] [address] Performed By: #### 5 7021-8 #### [facility] CLIA [id number] [address] [place] [address] [place] Platelet mean volume (Bld) [Entitic vol] 11.4 fL Normal 9.0-12.7 [facility] Comment on above: Order Comment: Speci men Type: BLOOD SPECIMEN Ordering Facility: [facility] Address: [address] [place] [address] Performed By: #### 5 7021-8 #### [facility] CLIA [id number] [address] [place] [address] [place] Platelets (Bld) [#/Vol] 291 10*3/uL Normal 150-400 [facility] Comment on above: Order Comment: Speci men Type: BLOOD SPECIMEN Ordering Facility: [facility] Address: [address] [place] [address] Performed By: #### 5 7021-8 #### [facility] CLIA [id number] [address] [place] [address] [place] RBC (Bld) [#/Vol] 6.17 10*6/uL High 4.20-6.00 [facility] Comment on above: Order Comment: Speci men Type: BLOOD SPECIMEN Ordering Facility: [facility] Address: [address] [place] [address] Performed By: #### 5 7021-8 #### [facility] CLIA [id number] [address] [place] [address] [place] WBC (Bld) [#/Vol] 8.30 10*3/uL Normal 3.70-11.00 [facility] Comment on above: Order Comment: Speci men Type: BLOOD SPECIMEN Ordering Facility: [facility] Address: [address] [place] [address] Performed By: #### 5 7021-8 #### [facility] CLIA [id number] [address] [place] [address] [place] Estradiol SerPl-mCncon 11-24 E2 [Mass/Vol] 56 pg/mL High <38 [facility] Comment on above: Order Comment: Speci men Type: BLOOD SPECIMEN Ordering Facility: External Submitter Address: , , Result Comment: This test is not suitable for patients receiving treatment with the drug Fulvestrant (Faslodex). The drug causes an interference leading to falsely elevated estradiol results. Performed By: #### 3 051-0, 3016-3, 302-7, 2242-4 #### [facility] CLIA [id number] [address] [place] [address] [place] T3Free SerPl-mCncon 11-25-19 24 Free T3 [Mass/Vol] 3.7 pg/mL Normal 2.3-4.1 [facility] Comment on above: Order Comment: Speci men Type: BLOOD SPECIMEN Ordering Facility: External Submitter Address: , , Performed By: #### 3 051-0, 3016-3, 3027, 2242-4 #### [facility] CLIA [id number] [address] [place] [address] [place] T4 Free SerPl-mCncon 024 Free T4 [Mass/Vol] 1.3 ng/dL Normal 0.9-1.7 [facility] Comment on above: Order Comment: Speci men Type: BLOOD SPECIMEN Ordering Facility: External Submitter Address: , , Performed By: #### 3 051-0, 3016-3, 302-7, 2242-4 #### [facility] CLIA [id number] [address] [place] [address] [place] TSH SerPl-aCncon 11-25-2023 TSH Qn 1.710 m[IU]/L Normal 0.270-4.200 [facility] Comment on above: Order Comment: Speci men Type: BLOOD SPECIMEN Ordering Facility: External Submitter Address: , , Performed By: #### 3 051-0, 3016-3, 3024-7, 2243-4 #### [facility] CLIA [id number] [address] [place] [address] [place] Testost SerPl-mCncon 024 Testosterone [Mass/Vol] 1003 ng/dL High 193-824 [facility] Comment on above: Order Comment: Speci men Type: BLOOD SPECIMEN Ordering Facility: [facility] Address: [address] [place] [address] Result Comment: A te stosterone level in the 193-320 ng/dL range with associated clinical symptoms is considered low and may indicate hypogonadism (from [facility] 2010 363:123-135). Results >320 ng/dL are considered normal. Performed By: #### 5 7021-8 #### [facility] CLIA [id number] [address] [place] [address] [place] CBC panel Auto (Bld)on 10-13 Erythrocyte distribution width (RBC) [Ratio] 13.6 % Normal 11.5-15.0 [facility] Comment on above: Order Comment: Speci men Type: BLOOD SPECIMEN Ordering Facility: External Submitter Address: , , Performed By: #### 5 8410-2 #### [facility] CLIA [id number] [address] [place] [address] [place] Hematocrit (Bld) [Volume fraction] 51.8 % High 39.0-51.0 [facility] Comment on above: Order Comment: Speci men Type: BLOOD SPECIMEN Ordering Facility: External Submitter Address: , , Performed By: #### 5 8410-2 #### [facility] CLIA [id number] [address] [place] [address] [place] Hemoglobin (Bld) [Mass/Vol] 17.3 g/dL High 13.0-17.0 [facility] Comment on above: Order Comment: Speci men Type: BLOOD SPECIMEN Ordering Facility: External Submitter Address: , , Performed By: #### 5 8410-2 #### [facility] CLIA [id number] [address] [place] [address] [place] MCH (RBC) [Entitic mass] 27.2 pg Normal 26.0-34.0 [facility] Comment on above: Order Comment: Speci men Type: BLOOD SPECIMEN Ordering Facility: External Submitter Address: , , Performed By: #### 5 8410-2 #### [facility] CLIA [id number] [address] [place] [address] [place] MCHC (RBC) [Mass/Vol] 33.4 g/dL Normal 30.5-36.0 [facility] Comment on above: Order Comment: Speci men Type: BLOOD SPECIMEN Ordering Facility: External Submitter Address: , , Performed By: #### 5 8410-2 #### [facility] CLIA [id number] [address] [place] [address] [place] MCV (RBC) [Entitic vol] 81.6 fL Normal 80.0-100.0 [facility] Comment on above: Order Comment: Speci men Type: BLOOD SPECIMEN Ordering Facility: External Submitter Address: , , Performed By: #### 5 8410-2 #### [facility] CLIA [id number] [address] [place] [address] [place] Nucleated RBC (Bld) [#/Vol] 10*3/uL Normal <0.01 [facility] Comment on above: Order Comment: Speci men Type: BLOOD SPECIMEN Ordering Facility: External Submitter Address: , , Performed By: #### 5 8410-2 #### [facility] CLIA [id number] [address] [place] [id number] [place] Platelet mean volume (Bld) [Entitic vol] 12.1 fL Normal 9.0-12.7 [facility] Comment on above: Order Comment: Speci men Type: BLOOD SPECIMEN Ordering Facility: External Submitter Address: , , Performed By: #### 5 8410-2 #### [facility] CLIA [id number] [address] [place] [address] [place] Platelets (Bld) [#/Vol] 249 10*3/uL Normal 150-400 [facility] Comment on above: Order Comment: Speci men Type: BLOOD SPECIMEN Ordering Facility: External Submitter Address: , , Performed By: #### 5 8410-2 #### [facility] CLIA [id number] [address] [place] [address] [place] RBC (Bld) [#/Vol] 6.35 10*6/uL High 4.20-6.00 [facility] Comment on above: Order Comment: Speci men Type: BLOOD SPECIMEN Ordering Facility: External Submitter Address: , , Performed By: #### 5 8410-2 #### [facility] CLIA [id number] [address] [place] [address] [place] WBC (Bld) [#/Vol] 8.83 10*3/uL Normal 3.70-11.00 [facility] Comment on above: Order Comment: Speci men Type: BLOOD SPECIMEN Ordering Facility: External Submitter Address: , , Performed By: #### 5 8410-2 #### [facility] CLIA [id number] [address] [place] [address] [place] Cholesterol in LDL Direct as say [Mass/Vol]on 10-14-2023 Cholesterol in LDL [Mass/Vol] 77 mg/dL Normal <100 [facility] Comment on above: Order Comment: Speci men Type: BLOOD SPECIMEN Ordering Facility: External Submitter Address: , , Result Comment: <100 mg/dL, Optimal 100-129 mg/dL, Near optimal/above optimal 130-159 mg/dL, Borderline high 160-189 mg/dL, High >189 mg/dL, Very high Secondary prevention optimal LDL Cholesterol levels are recommended to be < 70 mg/dL Performed By: #### 5 8410-2 #### [facility] CLIA [id number] [address] [place] [address] [place] Cholesterol in VLDL [Mass/Vol] 119 mg/dL High <30 [facility] Comment on above: Order Comment: Speci men Type: BLOOD SPECIMEN Ordering Facility: External Submitter Address: , , Performed By: #### 5 8410-2 #### [facility] CLIA [id number] [address] [place] [address] [place] Comprehensive metabolic 2000 panelon 10-14-2023 Albumin [Mass/Vol] 4.9 g/dL Normal 3.9-4.9 [facility] Comment on above: Order Comment: Speci men Type: BLOOD SPECIMEN Ordering Facility: External Submitter Address: , , Performed By: #### 1 8262-6, 59538-4, 27070-3 #### [facility] CLIA [id number] [address] [place] [address] [place] ALP [Catalytic activity/Vol] 73 U/L Normal 38-113 [facility] Comment on above: Order Comment: Speci men Type: BLOOD SPECIMEN Ordering Facility: External Submitter Address: , , Performed By: #### 1 8262-6, 79333-3, 96005-1 #### [facility] CLIA [id number] [address] [place], [place] [address] [place] ALT [Catalytic activity/Vol] 30 U/L Normal 10-54 [facility] Comment on above: Order Comment: Speci men Type: BLOOD SPECIMEN Ordering Facility: External Submitter Address: , , Performed By: #### 1 8262-6, 72395-3, 15175-6 #### [facility] CLIA [id number] [address] [place] [address] [place] Anion gap [Moles/Vol] 13 mmol/L Normal 9-18 [facility] Comment on above: Order Comment: Speci men Type: BLOOD SPECIMEN Ordering Facility: External Submitter Address: , , Performed By: #### 1 8262-6, 76108-5, #### [facility] CLIA [id number] [address] [place] [address] [place] AST [Catalytic activity/Vol] 19 U/L Normal 14-40 [facility] Comment on above: Order Comment: Speci men Type: BLOOD SPECIMEN Ordering Facility: External Submitter Address: , , Performed By: #### 1 8262-6, , #### [facility] CLIA [id number] [address] [place] [address] [place] Bilirubin [Mass/Vol] 0.7 mg/dL Normal 0.2-1.3 [facility] Comment on above: Order Comment: Speci men Type: BLOOD SPECIMEN Ordering Facility: External Submitter Address: , , Performed By: #### 1 8262-6, , #### [facility] CLIA [id number] [address] [place] [address] [place] Calcium [Mass/Vol] 10.0 mg/dL Normal 8.5-10.2 [facility] Comment on above: Order Comment: Speci men Type: BLOOD SPECIMEN Ordering Facility: External Submitter Address: , , Performed By: #### 1 8262-6, 56014-7, #### [facility] CLIA [id number] [address] [place] [address] [place] Chloride [Moles/Vol] 102 mmol/L Normal 97-105 [facility] Comment on above: Order Comment: Speci men Type: BLOOD SPECIMEN Ordering Facility: External Submitter Address: , , Performed By: #### 1 8262-6, 73003-0, #### [facility] CLIA [id number] [address] [place] [address] [place] CO2 [Moles/Vol] 26 mmol/L Normal 22-30 [facility] Comment on above: Order Comment: Speci men Type: BLOOD SPECIMEN Ordering Facility: External Submitter Address: , , Performed By: #### 1 8262-6, , #### [facility] CLIA [id number] [address] [place] [address] [place] Creatinine [Mass/Vol] 0.99 mg/dL Normal 0.73-1.22 [facility] Comment on above: Order Comment: Speci joni Type: BLOOD SPECIMEN Ordering Facility: External Submitter Address: , , Performed By: #### 1 8262-6, , #### [facility] CLIA [id number] [address] [place] [address] [place] [place] Creatinine and Glomerular filtration rate.predicted panel (S/P/Bld) 103 mL/min/1.73m??? Normal >=60 [facility] Comment on above: Order Comment: Speci joni Type: BLOOD SPECIMEN Ordering Facility: External Submitter Address: , , Result Comment: Zunilda mated Glomerular Filtration Rate (eGFR) is calculated using the 2020 CKD-EPI creatinine equation. This equation utilizes serum creatinine, sex, and age as parameters. The creatinine assay has traceable calibration to isotope dilution-mass spectrometry. Refer to KDIGO guidelines for clinical interpretation. In patients with unstable renal function, e.g. those with acute kidney injury, the eGFR may not accurately reflect actual GFR. Performed By: #### 1 8262-6, 74253-9, #### [facility] CLIA [id number] [address] [place] [address] [place] Glucose [Mass/Vol] 85 mg/dL Normal 74-99 [facility] Comment on above: Order Comment: Lili quinones Type: BLOOD SPECIMEN Ordering Facility: External Submitter Address: , , Result Comment: The [place] Diabetes Association (ADA) provides guidance for cutoff values for fasting glucose and random glucose. The ADA defines fasting as no caloric intake for at least 8 hours. Fasting plasma glucose results between 100 to 125 mg/dL indicate increased risk for diabetes (prediabetes). Fasting plasma glucose results greater than or equal to 126 mg/dL meet the criteria for diagnosis of diabetes. In the absence of unequivocal hyperglycemia, results should be confirmed by repeat testing. In a patient with classic symptoms of hyperglycemia or hyperglycemic crisis, random plasma glucose results greater than or equal to 200 mg/dL meet the criteria for diagnosis of diabetes. Reference: Standards of Medical Care in Diabetes 2016, [place] [employer]. Diabetes Care. 2016.39(Suppl 1). Performed By: #### 1 8262-6, 23723-2, 29210-8 #### [facility] CLIA [id number] [address] [place] [address] [place] Potassium [Moles/Vol] 4.4 mmol/L Normal 3.7-5.1 [facility] Comment on above: Order Comment: Lili quinones Type: BLOOD SPECIMEN Ordering Facility: External Submitter Address: , , Performed By: #### 1 8262-6, 97139-2, #### [facility] CLIA [id number] [address] [place] [id number] [place] Protein [Mass/Vol] 7.8 g/dL Normal 6.3-8.0 [facility] Comment on above: Order Comment: Lili quinones Type: BLOOD SPECIMEN Ordering Facility: External Submitter Address: , , Performed By: #### 1 8262-6, 58355-2, #### [facility] CLIA [id number] [address] [address] [place] Sodium [Moles/Vol] 141 mmol/L Normal 136-144 [facility] Comment on above: Order Comment: Speci men Type: BLOOD SPECIMEN Ordering Facility: External Submitter Address: , , Performed By: #### 1 8262-6, 57419-4, 39651-3 #### [facility] CLIA [id number] [address] [place] [address] [place] Urea nitrogen [Mass/Vol] 15 mg/dL Normal 9-24 [facility] Comment on above: Order Comment: Speci men Type: BLOOD SPECIMEN Ordering Facility: External Submitter Address: , , Performed By: #### 1 8262-6, 80931-6, 59277-0 #### [facility] CLIA [id number] [address] [place] [address] [place] Lipid 1996 panelon 4 Cholesterol [Mass/Vol] 220 mg/dL High <200 [facility] Comment on above: Order Comment: Speci men Type: BLOOD SPECIMEN Ordering Facility: External Submitter Address: , , Result Comment: <200 mg/dL, Desirable 200-239 mg/dL, Borderline high >239 mg/dL, High Performed By: #### 1 8262-6, 76483-4, 99736-3 #### [facility] CLIA [id number] [address] [place] [address] [place] Cholesterol in HDL [Mass/Vol] 24 mg/dL Low >39 [facility] Comment on above: Order Comment: Speci men Type: BLOOD SPECIMEN Ordering Facility: External Submitter Address: , , Result Comment: 40-5 9 mg/dL, Acceptable >59 mg/dL, High: Negative risk factor for coronary heart disease <40 mg/dL, Low: Positive risk factor for coronary heart disease Performed By: #### 1 8262-6, 52772-0, 92300-0 #### [facility] CLIA [id number] [address] [place] [address] [place] Cholesterol in LDL [Mass/Vol] Normal [facility] Comment on above: Order Comment: Speci men Type: BLOOD SPECIMEN Ordering Facility: External Submitter Address: , , Result Comment: Unab le to calculate due to increased Triglycerides. See LDL-Chol, Direct. Performed By: #### 1 8262-6, 97495-1, 61298-1 #### [facility] CLIA [id number] [address] [place] [address] [place] Cholesterol in LDL/Cholesterol in HDL [Mass ratio] Normal [facility] Comment on above: Order Comment: Speci men Type: BLOOD SPECIMEN Ordering Facility: External Submitter Address: , , Result Comment: Unab le to calculate due to elevated Triglycerides. Reference: 1. National Cholesterol Education Program ATP III Guideline At-A-Glance Quick Desk Reference: National Heart, Lung, and Blood [place]. National Institutes of Health. 2001: NIH Publication No. 01-3305. 2. An International Atherosclerosis Society position paper: global recommendations for the management of dyslipidemia: executive summary, Atherosclerosis. 2014: 232(2):410-413. Performed By: #### 1 8262-6, 34353-6, 67329-6 #### [facility] CLIA [id number] [address] [place] [address] [place] Cholesterol in VLDL [Mass/Vol] Normal [facility] Comment on above: Order Comment: Lili quinones Type: BLOOD SPECIMEN Ordering Facility: External Submitter Address: , , Result Comment: Unab le to calculate due to increased Triglycerides. See LDL-Chol, Direct. Performed By: #### 1 8262-6, 78052-2, 56067-9 #### [facility] CLIA [id number] [address] [place] [address] [place] Cholesterol non HDL [Mass/Vol] 196 mg/dL High <130 [facility] Comment on above: Order Comment: [place] men Type: BLOOD SPECIMEN Ordering Facility: External Submitter Address: , , Result Comment: <130 mg/dL, Optimal 130-159 mg/dL, Near optimal/above optimal 160-189 mg/dL, Borderline high 190-219 mg/dL, High >219 mg/dL, Very high Secondary prevention optimal non HDL Cholesterol levels are recommended to be <100 mg/dL Performed By: #### 1 8262-6, 88884-6, 73799-2 #### [facility] CLIA [id number] [address] [place] [address] [place] Cholesterol.total /Cholesterol in HDL [Mass ratio] 9.17 {ratio} High <5.10 [facility] Comment on above: Order Comment: Speci men Type: BLOOD SPECIMEN Ordering Facility: External Submitter Address: , , Performed By: #### 1 8262-6, 66365-2, 36786-3 #### [facility] CLIA [id number] [address] [place] [address] [place] FASTING TIME 12 hrs Normal [facility] Comment on above: Order Comment: Lili quinones Type: BLOOD SPECIMEN Ordering Facility: External Submitter Address: , , Performed By: #### 1 8262-6, 66458-8, 78946-0 #### [facility] CLIA [id number] [address] [place] [address] [place] Triglyceride [Mass/Vol] 742 mg/dL High <150 [facility] Comment on above: Order Comment: Lili men Type: BLOOD SPECIMEN Ordering Facility: External Submitter Address: , , Result Comment: <150 mg/dL, Normal 150-199 mg/dL, Borderline high 200-499 mg/dL, High >499 mg/dL, Very high Performed By: #### 1 8262-6, 29157-8, 73940-5 #### [facility] CLIA [id number] [address] [place] [address] [place] Comprehensive metabolic 2000 panelon 05-22-2023 Albumin [Mass/Vol] 4.7 g/dL 3.9 - 4.9 g/dL [facility] ALP [Catalytic activity/Vol] 70 U/L 38 - 113 U/L [facility] ALT [Catalytic activity/Vol] Low 10 - 54 U/L [facility] Anion gap [Moles/Vol] 15 mmol/L 9 - 18 mmol/L [facility] AST [Catalytic activity/Vol] 20 U/L 14 - 40 U/L [facility] Bilirubin [Mass/Vol] 0.5 mg/dL 0.2 - 1.3 mg/dL [facility] Calcium [Mass/Vol] 10.0 mg/dL 8.5 - 10.2 mg/dL [facility] Chloride [Moles/Vol] 103 mmol/L 97 - 105 mmol/L [facility] CO2 [Moles/Vol] 22 mmol/L 22 - 30 mmol/L [facility] Creatinine [Mass/Vol] 1.31 mg/dL High 0.73 - 1.22 mg/dL [facility] Estimated Glomerular Filtration Rate 73 mL/min/1.73m >=60 mL/min/1.73m [facility] Glucose [Mass/Vol] 87 mg/dL 74 - 99 mg/dL [facility] Potassium [Moles/Vol] 3.8 mmol/L 3.7 - 5.1 mmol/L [facility] Protein [Mass/Vol] 7.5 g/dL 6.3 - 8.0 g/dL [facility] Sodium [Moles/Vol] 140 mmol/L 136 - 144 mmol/L [facility] Urea nitrogen [Mass/Vol] 16 mg/dL 9 - 24 mg/dL [facility] URIC ACID BLOODon 05-22-2023 Urate [Mass/Vol] 8.2 mg/dL High 4.0 - 8.1 mg/dL [facility] CBC W Auto Differential pane l (Bld)on 05-21-2023 Basophils (Bld) [#/Vol] 0.07 10*3/uL <0.11 k/uL [facility] Basophils/100 WBC (Bld) 0.7 % [facility] Differential cell count method Nom (Bld) Auto [facility] Eosinophils (Bld) [#/Vol] 0.36 10*3/uL <0.46 k/uL [facility] Eosinophils/100 WBC (Bld) 3.5 % [facility] Erythrocyte distribution width (RBC) [Ratio] 13.4 % 11.5 - 15.0 % [facility] Hematocrit (Bld) [Volume fraction] 51.7 % High 39.0 - 51.0 % [facility] Hemoglobin (Bld) [Mass/Vol] 16.9 g/dL 13.0 - 17.0 g/dL [facility] Immature granulocytes (Bld) [#/Vol] 0.14 10*3/uL High <0.10 k/uL [facility] Immature granulocytes/100 WBC (Bld) 1.4 % [facility] Lymphocytes (Bld) [#/Vol] 3.15 10*3/uL 1.00 - 4.00 k/uL [facility] Lymphocytes/100 WBC (Bld) 30.5 % [facility] MCH (RBC) [Entitic mass] 26.9 pg 26.0 - 34.0 pg [facility] MCHC (RBC) [Mass/Vol] 32.7 g/dL 30.5 - 36.0 g/dL [facility] MCV (RBC) [Entitic vol] 82.3 fL 80.0 - 100.0 fL [facility] Monocytes (Bld) [#/Vol] 0.66 10*3/uL <0.87 k/uL [facility] Monocytes/100 WBC (Bld) 6.4 % [facility] Neutrophils (Bld) [#/Vol] 5.95 10*3/uL 1.45 - 7.50 k/uL [facility] Neutrophils/100 WBC (Bld) 57.5 % [facility] Nucleated RBC (Bld) [#/Vol] <0.01 k/uL [facility] Nucleated RBC/100 WBC (Bld) [Ratio] 0.0 /100 WBC [facility] Platelet mean volume (Bld) [Entitic vol] 12.0 fL 9.0 - 12.7 fL [facility] Platelets (Bld) [#/Vol] 273 10*3/uL 150 - 400 k/uL [facility] RBC (Bld) [#/Vol] 6.28 10*6/uL High 4.20 - 6.0 0 m/uL [facility] WBC (Bld) [#/Vol] 10.33 10*3/uL 3.70 - 11 .00 k/uL [facility] Basophils (Bld) [#/Vol] 0.07 10*3/uL Normal <0.11 [facility] Comment on above: Order Comment: Speci men Type: BLOOD SPECIMEN Ordering Facility: [facility] Address: [address] [place], [place] [id number] Performed By: #### 5 7021-8 #### [facility] CLIA [id number] [address] [place] [address] [place] Basophils/100 WBC (Bld) 0.7 % Normal [facility] Comment on above: Order Comment: Speci men Type: BLOOD SPECIMEN Ordering Facility: [facility] Address: [address] [place] [address] Performed By: #### 5 7021-8 #### [facility] CLIA [id number] [address] [place] [address] [place] Differential cell count method Nom (Bld) Auto Normal [facility] Comment on above: Order Comment: Speci men Type: BLOOD SPECIMEN Ordering Facility: [facility] Address: [address] [place] [address] Performed By: #### 5 7021-8 #### [facility] CLIA [id number] [address] [place] [address] [place] Eosinophils (Bld) [#/Vol] 0.36 10*3/uL Normal <0.46 [facility] Comment on above: Order Comment: Speci men Type: BLOOD SPECIMEN Ordering Facility: [facility] Address: [address] [place] [address] Performed By: #### 5 7021-8 #### [facility] CLIA [id number] [address] [place] [address] [place] Eosinophils/100 WBC (Bld) 3.5 % Normal [facility] Comment on above: Order Comment: Speci men Type: BLOOD SPECIMEN Ordering Facility: [facility] Address: [address] [place] [address] Performed By: #### 5 7021-8 #### [facility] CLIA [id number] [address] [place] [address] [place] Erythrocyte distribution width (RBC) [Ratio] 13.4 % Normal 11.5-15.0 [facility] Comment on above: Order Comment: Speci men Type: BLOOD SPECIMEN Ordering Facility: [facility] Address: [address] [place] [address] Performed By: #### 5 7021-8 #### [facility] CLIA [id number] [address] [place] [address] [place] Hematocrit (Bld) [Volume fraction] 51.7 % High 39.0-51.0 [facility] Comment on above: Order Comment: Speci men Type: BLOOD SPECIMEN Ordering Facility: [facility] Address: [address] [place] [address] Performed By: #### 5 7021-8 #### [facility] CLIA [id number] [address] [place] [address] [place] Hemoglobin (Bld) [Mass/Vol] 16.9 g/dL Normal 13.0-17.0 [facility] Comment on above: Order Comment: Speci men Type: BLOOD SPECIMEN Ordering Facility: [facility] Address: [address] [place] [address] Performed By: #### 5 7021-8 #### [facility] CLIA [id number] [address] [place] [address] [place] Immature granulocytes (Bld) [#/Vol] 0.14 10*3/uL High <0.10 [facility] Comment on above: Order Comment: Speci men Type: BLOOD SPECIMEN Ordering Facility: [facility] Address: [address] [place] [address] Performed By: #### 5 7021-8 #### [facility] CLIA [id number] [address] [place] [address] [place] Immature granulocytes/100 WBC (Bld) 1.4 % Normal [facility] Comment on above: Order Comment: Speci men Type: BLOOD SPECIMEN Ordering Facility: [facility] Address: [address] [place] [address] Performed By: #### 5 7021-8 #### [facility] CLIA [id number] [address] [place] [address] [place] Lymphocytes (Bld) [#/Vol] 3.15 10*3/uL Normal 1.00-4.00 [facility] Comment on above: Order Comment: Speci men Type: BLOOD SPECIMEN Ordering Facility: [facility] Address: [address] [place] [address] Performed By: #### 5 7021-8 #### [facility] CLIA [id number] [address] [place] [address] [place] Lymphocytes/100 WBC (Bld) 30.5 % Normal [facility] Comment on above: Order Comment: Speci men Type: BLOOD SPECIMEN Ordering Facility: [facility] Address: [address] [place] [address] Performed By: #### 5 7021-8 #### [facility] CLIA [id number] [address] [place] [address] [place] MCH (RBC) [Entitic mass] 26.9 pg Normal 26.0-34.0 [facility] Comment on above: Order Comment: Speci men Type: BLOOD SPECIMEN Ordering Facility: [facility] Address: [address] [place] [address] Performed By: #### 5 7021-8 #### [facility] CLIA [id number] [address] [place] [address] [place] MCHC (RBC) [Mass/Vol] 32.7 g/dL Normal 30.5-36.0 [facility] Comment on above: Order Comment: Speci men Type: BLOOD SPECIMEN Ordering Facility: [facility] Address: [address] [place] [address] Performed By: #### 5 7021-8 #### [facility] CLIA [id number] [address] [place] [address] [place] MCV (RBC) [Entitic vol] 82.3 fL Normal 80.0-100.0 [facility] Comment on above: Order Comment: Speci men Type: BLOOD SPECIMEN Ordering Facility: [facility] Address: [address] [place] [address] Performed By: #### 5 7021-8 #### [facility] CLIA [id number] [address] [place] [address] [place] Monocytes (Bld) [#/Vol] 0.66 10*3/uL Normal <0.87 [facility] Comment on above: Order Comment: Speci men Type: BLOOD SPECIMEN Ordering Facility: [facility] Address: [address] [place] [address] Performed By: #### 5 7021-8 #### [facility] CLIA [id number] [address] [place] [address] [place] Monocytes/100 WBC (Bld) 6.4 % Normal [facility] Comment on above: Order Comment: Speci men Type: BLOOD SPECIMEN Ordering Facility: [facility] Address: [address] [place] [address] Performed By: #### 5 7021-8 #### [facility] CLIA [id number] [address] [place] [address] [place] Neutrophils (Bld) [#/Vol] 5.95 10*3/uL Normal 1.45-7.50 [facility] Comment on above: Order Comment: Speci men Type: BLOOD SPECIMEN Ordering Facility: [facility] Address: [address] [place] [address] Performed By: #### 5 7021-8 #### [facility] CLIA [id number] [address] [place] [address] [place] Neutrophils/100 WBC (Bld) 57.5 % Normal [facility] Comment on above: Order Comment: Speci men Type: BLOOD SPECIMEN Ordering Facility: [facility] Address: [address] [place] [address] Performed By: #### 5 7021-8 #### [facility] CLIA [id number] [address] [place] [address] [place] Nucleated RBC (Bld) [#/Vol] 10*3/uL Normal <0.01 [facility] Comment on above: Order Comment: Speci men Type: BLOOD SPECIMEN Ordering Facility: [facility] Address: [address] [place] [address] Performed By: #### 5 7021-8 #### [facility] CLIA [id number] [address] [place] [address] [place] Nucleated RBC/100 WBC (Bld) [Ratio] 0.0 /100 WBC Normal [facility] Comment on above: Order Comment: Speci men Type: BLOOD SPECIMEN Ordering Facility: [facility] Address: [address] [place] [address] Performed By: #### 5 7021-8 #### [facility] CLIA [id number] [address] [place] [address] [place] Platelet mean volume (Bld) [Entitic vol] 12.0 fL Normal 9.0-12.7 [facility] Comment on above: Order Comment: Speci men Type: BLOOD SPECIMEN Ordering Facility: [facility] Address: [address] [place] [address] Performed By: #### 5 7021-8 #### [facility] CLIA [id number] [address] [place] [address] [place] Platelets (Bld) [#/Vol] 273 10*3/uL Normal 150-400 [facility] Comment on above: Order Comment: Speci men Type: BLOOD SPECIMEN Ordering Facility: [facility] Address: [address] [place] [address] Performed By: #### 5 7021-8 #### [facility] CLIA [id number] [address] [place] [address] [place] RBC (Bld) [#/Vol] 6.28 10*6/uL High 4.20-6.00 [facility] Comment on above: Order Comment: Speci men Type: BLOOD SPECIMEN Ordering Facility: [facility] Address: [place] [address] Performed By: #### 5 7021-8 #### [facility] CLIA [id number] [address] [place] [address] [place] WBC (Bld) [#/Vol] 10.33 10*3/uL Normal 3.70-11.00 [facility] Comment on above: Order Comment: Speci joni Type: BLOOD SPECIMEN Ordering Facility: [facility] Address: [place] [address] Performed By: #### 5 7021-8 #### [facility] CLIA [id number] [address] [place], [place] [id number] [place] CNOVon 05-21-2023 CNOV Office Visit (ALIDA ) UBALDO REHAMN ([id number]) 1990 M Date Time Provider Department 05/21/23 4:00 PM JASBIR ARANDA During your visit today, we recorded the following information about you: Temperature Pulse Blood pressure Weight 96.6 degrees 112/minute 127/69 135.4 kg Jasbir Aranda MD 05/30/2023 7:06 PM Signed Rheumatology History AND Physical Patient name: Ubaldo Rehman Requesting provider: No att. providers found SUBJECTIVE INITIAL RHEUMATOLOGY VISIT 08/27/2022 (with Jasbir Aranda): Mr. Ubaldo Rehman is a 32 year old male who has a past medical history of concussion, former smoker, gout, smoking who presents for rheumatologic evaluation. Patient is from [place], [place] with minimal records in [facility] system. PSHx: He has a past surgical history that includes none. Allergies: He is allergic to pollen. Current Meds: lipitor, colchicine PRN flare Family History: family history includes Arthritis in his paternal grandmother; Emphysema in his maternal grandfather; Heart in his maternal grandmother; Hypertension in his maternal grandmother. Social History: He reports that he quit smoking about 13 years ago. His smoking use included cigarettes. He has never used smokeless tobacco. He reports current alcohol use of about 15.0 standard drinks of alcohol per week. He reports that he does not use drugs. Labs: CBC Latest Ref Rng AND Units 03/25/2023 01/01/2023 08/27/2022 12/11/2006 WBC 3.70 - 11.00 k/uL 10.11 6.05 12.65(H) - HEMOGLOBIN 13.0 - 17.0 g/dL 16.5 14.4 16.0 - HEMOGLOBIN, MIL[place]RO 14.0 - 18.0 g/dL - - - 15.2 HEMATOCRIT 39.0 - 51.0 % 51.5(H) 45.8 50.2 - PLATELETS 150 - 400 k/uL 279 229 305 - ABS NEUT (ANC) 1.45 - 7.50 k/uL 6.23 2.60 8.60(H) - ABS NEUT, [place] 2.0 - 8.1 k/uL - - - 6.7 ABS LYMP, [place] 1.0 - 5.5 k/uL - - - 2.4 ABS LYMPH 1.00 - 4.00 k/uL 2.51 2.06 3.04 - CMP Latest Ref Rng AND Units 03/25/2023 01/01/2023 08/27/2022 SODIUM 136 - 144 mmol/L 137 141 140 POTASSIUM 3.7 - 5.1 mmol/L 4.5 4.6 4.6 CHLORIDE 97 - 105 mmol/L 101 104 99 CO2 22 - 30 mmol/L 19(L) 28 26 GLUCOSE 74 - 99 mg/dL 77 90 76 BUN 9 - 24 mg/dL 24 18 18 CREATININE 0.73 - 1.22 mg/dL 1.05 1.04 0.88 CALCIUM, TOTAL 8.5 - 10.2 mg/dL 9.9 9.9 10.0 AST 14 - 40 U/L 19 19 18 ALT 10 - 54 U/L 30 54 37 ALKALINE PHOSPHATASE 38 - 113 U/L 70 63 67 Uric Acid Latest Ref Rng AND Units 03/25/2023 01/01/2023 08/27/2022 URIC ACID 4.0 - 8.1 mg/dL 11.0(H) 7.2 8.6(H) ESR, WSR Latest Ref Rng AND Units 08/27/2022 12/11/2006 WSR 0 - 15 mm/hr 13 - SED RATE, MILAGRO 0 - 10 mm/hr - 18(H) CRP Latest Ref Rng AND Units 08/27/2022 CRP <0.9 mg/dL 0.7 Urinalysis Latest Ref Rng AND Units 04/10/2008 03/12/2006 PROTEIN, URINE Neg mg/dL TRACE neg Labs: 2006: elevated ESR 18 RHEUMATOLOGY EVALUATION 08/27/2022 Patient seen and examined - today is his initial evaluation with [facility] rheumatology. H/o gout, non-crystal proven - diagnosed about 5 years ago - recalls R1st MTP podagra at the time - was seen locally in [place], [place] by siding mechanic at the time who told patient he has gout. No h/o crystal proven diagnosis. Has experienced gouty flares over MTP-11 joints b/l, dorsum of feet and more recently ankles b/l Last flare - last week in which he is in the tail end of - currently finishing a medrol dose rosibel for the gout flare. H/o obesity, hypertriglyceridemia - per patient has about 10 gout flares a year. No known FHx of gout. States his diet is not particularly high in red meat however tries to limit. Does not drink soda/pop, admits to drinking alcoholic beverages weekly, more so bourbon than beer but sometimes beer. Not on any diuretic therapy. Has never been on urate lowering drugs such as allopurinol or febuxostat. No h/o tophi. No h/o CKD; + h/o nephrolithiasis 3 years ago - passed spontaneously Rheumatologic ROS (+) in bold; all rest are negative/denies history of: Chest pain, shortness of breath, history of pleural effusion or pericarditis, oral/nasal ulcers, photosensitivity, rash, history of DVT/PE/ANDor miscarriages, renal disease, seizures, dry eyes, dry mouth, cervical lymphadenopathy or parotid gland swelling, raynaud's phenomenon, alopecia, psoriasis, history of iritis/uveitis or scleritis, nail pitting, dactylitis, history of sacroiliitis or inflammatory bowel disease, arm weakness in raising arms above head, leg weakness in standing up from a seated position, skin tightening, dysphagia, changes in vision, scalp tenderness, jaw claudication, stiffness in shoulders/hip girdle, auricular or nasal chondritis - RHEUMATOLOGY FOLLOW UP VISIT 05/21/2023: Patient seen and examined at [facility] ([facility] [place] [place] rheumatology clinic for a follow up visit. Diagnostics since last visit: 04/03: sCr (more content not included)... Normal [facility] Comprehensive metabolic 2000 panelon 05-21-2023 Albumin [Mass/Vol] 4.7 g/dL Normal 3.9-4.9 [facility] Comment on above: Order Comment: Lili quinones Type: BLOOD SPECIMEN Ordering Facility: External Submitter Address: , , Performed By: #### 5 8410-2 #### [facility] CLIA [id number] [address] [place] [address] [place] ALP [Catalytic activity/Vol] 70 U/L Normal 38-113 [facility] Comment on above: Order Comment: Lili quinones Type: BLOOD SPECIMEN Ordering Facility: External Submitter Address: , , Performed By: #### 5 8410-2 #### [facility] CLIA [id number] [address] [place] [address] [place] ALT [Catalytic activity/Vol] U/L Low 10-54 [facility] Comment on above: Order Comment: Lili quinones Type: BLOOD SPECIMEN Ordering Facility: External Submitter Address: , , Result Comment: Resu lt rechecked. Performed By: #### 5 8410-2 #### [facility] CLIA [id number] [facility] [place] [address] [place] Anion gap [Moles/Vol] 15 mmol/L Normal 9-18 [facility] Comment on above: Order Comment: Speci men Type: BLOOD SPECIMEN Ordering Facility: External Submitter Address: , , Performed By: #### 5 8410-2 #### [facility] CLIA [id number] [address] [place] [address] [place] AST [Catalytic activity/Vol] 20 U/L Normal 14-40 [facility] Comment on above: Order Comment: Speci men Type: BLOOD SPECIMEN Ordering Facility: External Submitter Address: , , Result Comment: Spec imen is lipemic. Lipemia removed prior to analysis. Performed By: #### 5 8410-2 #### [facility] CLIA [id number] [address] [place] [address] [place] Bilirubin [Mass/Vol] 0.5 mg/dL Normal 0.2-1.3 [facility] Comment on above: Order Comment: Speci men Type: BLOOD SPECIMEN Ordering Facility: External Submitter Address: , , Performed By: #### 5 8410-2 #### [facility] CLIA [id number] [address] [place] [address] [place] Calcium [Mass/Vol] 10.0 mg/dL Normal 8.5-10.2 [facility] Comment on above: Order Comment: Speci men Type: BLOOD SPECIMEN Ordering Facility: External Submitter Address: , , Performed By: #### 5 8410-2 #### [facility] CLIA [id number] [address] [place] [address] [place] Chloride [Moles/Vol] 103 mmol/L Normal 97-105 [facility] Comment on above: Order Comment: Speci men Type: BLOOD SPECIMEN Ordering Facility: External Submitter Address: , , Performed By: #### 5 8410-2 #### [facility] CLIA [id number] [address] [place] [address] [place] CO2 [Moles/Vol] 22 mmol/L Normal 22-30 [facility] Comment on above: Order Comment: Speci joni Type: BLOOD SPECIMEN Ordering Facility: External Submitter Address: , , Performed By: #### 5 8410-2 #### [facility] CLIA [id number] [facility] [place] [address] [place] Creatinine [Mass/Vol] 1.31 mg/dL High 0.73-1.22 [facility] Comment on above: Order Comment: Keeshai men Type: BLOOD SPECIMEN Ordering Facility: External Submitter Address: , , Performed By: #### 5 8410-2 #### [facility] CLIA [id number] [address] [place] [address] [place] Creatinine and Glomerular filtration rate.predicted panel (S/P/Bld) 73 mL/min/1.73m??? Normal >=60 [facility] Comment on above: Order Comment: Lili quinones Type: BLOOD SPECIMEN Ordering Facility: External Submitter Address: , , Result Comment: Zunilda mated Glomerular Filtration Rate (eGFR) is calculated using the 2020 CKD-EPI creatinine equation. This equation utilizes serum creatinine, sex, and age as parameters. The creatinine assay has traceable calibration to isotope dilution-mass spectrometry. Refer to KDIGO guidelines for clinical interpretation. In patients with unstable renal function, e.g. those with acute kidney injury, the eGFR may not accurately reflect actual GFR. Performed By: #### 5 8410-2 #### [facility] CLIA [id number] [address] [place] [address] [place] Glucose [Mass/Vol] 87 mg/dL Normal 74-99 [facility] Comment on above: Order Comment: Lili quinones Type: BLOOD SPECIMEN Ordering Facility: External Submitter Address: , , Result Comment: The [place] Diabetes [employer] (ADA) provides guidance for cutoff values for fasting glucose and random glucose. The ADA defines fasting as no caloric intake for at least 8 hours. Fasting plasma glucose results between 100 to 125 mg/dL indicate increased risk for diabetes (prediabetes). Fasting plasma glucose results greater than or equal to 126 mg/dL meet the criteria for diagnosis of diabetes. In the absence of unequivocal hyperglycemia, results should be confirmed by repeat testing. In a patient with classic symptoms of hyperglycemia or hyperglycemic crisis, random plasma glucose results greater than or equal to 200 mg/dL meet the criteria for diagnosis of diabetes. Reference: Standards of Medical Care in Diabetes 2016, [place] [employer]. Diabetes Care. 2016.39(Suppl 1). Performed By: #### 5 8410-2 #### [facility] CLIA [id number] [address] [place] [address] [place] Potassium [Moles/Vol] 3.8 mmol/L Normal 3.7-5.1 [facility] Comment on above: Order Comment: Speci men Type: BLOOD SPECIMEN Ordering Facility: External Submitter Address: , , Performed By: #### 5 8410-2 #### [facility] CLIA [id number] [address] [place] [address] [place] Protein [Mass/Vol] 7.5 g/dL Normal 6.3-8.0 [facility] Comment on above: Order Comment: Speci men Type: BLOOD SPECIMEN Ordering Facility: External Submitter Address: , , Performed By: #### 5 8410-2 #### [facility] CLIA [id number] [address] [place] [address] [place] Sodium [Moles/Vol] 140 mmol/L Normal 136-144 [facility] Comment on above: Order Comment: Speci men Type: BLOOD SPECIMEN Ordering Facility: External Submitter Address: , , Performed By: #### 5 8410-2 #### [facility] CLIA [id number] [address] [place] [address] [place] Urea nitrogen [Mass/Vol] 16 mg/dL Normal 9-24 [facility] Comment on above: Order Comment: Speci men Type: BLOOD SPECIMEN Ordering Facility: External Submitter Address: , , Performed By: #### 5 8410-2 #### [facility] CLIA [id number] [address] [place] [address] [place] [facility] Urate SerPl-mCncon Urate [Mass/Vol] 8.2 mg/dL High 4.0-8.1 [facility] Comment on above: Order Comment: Speci men Type: BLOOD SPECIMEN Ordering Facility: External Submitter Address: , , Performed By: #### 5 8410-2 #### [facility] IA [id number] [address] [place] [address] [place] CBC W Auto Differential pane l (Bld)on 03-25-2023 Basophils (Bld) [#/Vol] 0.08 10*3/uL Normal <0.11 [facility] Comment on above: Order Comment: Speci men Type: BLOOD SPECIMEN Ordering Facility: External Submitter Address: , , Performed By: #### 5 8410-2 #### [facility] CLIA [id number] [address] [place] [address] [place] Basophils/100 WBC (Bld) 0.8 % Normal [facility] Comment on above: Order Comment: Speci men Type: BLOOD SPECIMEN Ordering Facility: External Submitter Address: , , Performed By: #### 5 8410-2 #### [facility] CLIA [id number] [address] [place] [address] [place] [facility] Differential cell count method Nom (Bld) Auto Normal [facility] Comment on above: Order Comment: Speci men Type: BLOOD SPECIMEN Ordering Facility: External Submitter Address: , , Performed By: #### 5 8410-2 #### [facility] CLIA [id number] [address] [place] [address] [place] Eosinophils (Bld) [#/Vol] 0.39 10*3/uL Normal <0.46 [facility] Comment on above: Order Comment: Speci men Type: BLOOD SPECIMEN Ordering Facility: External Submitter Address: , , Performed By: #### 5 8410-2 #### [facility] CLIA [id number] [address] [place] [address] [place] Eosinophils/100 WBC (Bld) 3.9 % Normal [facility] Comment on above: Order Comment: Speci men Type: BLOOD SPECIMEN Ordering Facility: External Submitter Address: , , Performed By: #### 5 8410-2 #### [facility] CLIA [id number] [address] [place] [address] [place] Erythrocyte distribution width (RBC) [Ratio] 13.6 % Normal 11.5-15.0 [facility] Comment on above: Order Comment: Speci men Type: BLOOD SPECIMEN Ordering Facility: External Submitter Address: , , Performed By: #### 5 8410-2 #### [facility] CLIA [id number] [address] [place] [address] [place] Hematocrit (Bld) [Volume fraction] 51.5 % High 39.0-51.0 [facility] Comment on above: Order Comment: Speci men Type: BLOOD SPECIMEN Ordering Facility: External Submitter Address: , , Performed By: #### 5 8410-2 #### [facility] CLIA [id number] [address] [place] [address] [place] Hemoglobin (Bld) [Mass/Vol] 16.5 g/dL Normal 13.0-17.0 [facility] Comment on above: Order Comment: Speci men Type: BLOOD SPECIMEN Ordering Facility: External Submitter Address: , , Performed By: #### 5 8410-2 #### [facility] CLIA [id number] [address] [place] [address] [place] Immature granulocytes (Bld) [#/Vol] 0.15 10*3/uL High <0.10 [facility] Comment on above: Order Comment: Speci men Type: BLOOD SPECIMEN Ordering Facility: External Submitter Address: , , Performed By: #### 5 8410-2 #### [facility] CLIA [id number] [address] [place] [address] [place] Immature granulocytes/100 WBC (Bld) 1.5 % Normal [facility] Comment on above: Order Comment: Speci men Type: BLOOD SPECIMEN Ordering Facility: External Submitter Address: , , Performed By: #### 5 8410-2 #### [facility] CLIA [id number] [address] [place] [address] [place] Lymphocytes (Bld) [#/Vol] 2.51 10*3/uL Normal 1.00-4.00 [facility] Comment on above: Order Comment: Speci men Type: BLOOD SPECIMEN Ordering Facility: External Submitter Address: , , Performed By: #### 5 8410-2 #### [facility] CLIA [id number] [address] [place] [address] [place] Lymphocytes/100 WBC (Bld) 24.8 % Normal [facility] Comment on above: Order Comment: Speci men Type: BLOOD SPECIMEN Ordering Facility: External Submitter Address: , , Performed By: #### 5 8410-2 #### [facility] CLIA [id number] [address] [place] [address] [place] MCH (RBC) [Entitic mass] 26.7 pg Normal 26.0-34.0 [facility] Comment on above: Order Comment: Speci men Type: BLOOD SPECIMEN Ordering Facility: External Submitter Address: , , Performed By: #### 5 8410-2 #### [facility] CLIA [id number] [address] [place] [address] [place] MCHC (RBC) [Mass/Vol] 32.0 g/dL Normal 30.5-36.0 [facility] Comment on above: Order Comment: Speci men Type: BLOOD SPECIMEN Ordering Facility: External Submitter Address: , , Performed By: #### 5 8410-2 #### [facility] CLIA [id number] [address] [place] [address] [place] MCV (RBC) [Entitic vol] 83.2 fL Normal 80.0-100.0 [facility] Comment on above: Order Comment: Speci men Type: BLOOD SPECIMEN Ordering Facility: External Submitter Address: , , Performed By: #### 5 8410-2 #### [facility] CLIA [id number] [address] [place] [address] [place] Monocytes (Bld) [#/Vol] 0.75 10*3/uL Normal <0.87 [facility] Comment on above: Order Comment: Speci men Type: BLOOD SPECIMEN Ordering Facility: External Submitter Address: , , Performed By: #### 5 8410-2 #### [facility] CLIA [id number] [address] [place] [address] [place] Monocytes/100 WBC (Bld) 7.4 % Normal [facility] Comment on above: Order Comment: Speci men Type: BLOOD SPECIMEN Ordering Facility: External Submitter Address: , , Performed By: #### 5 8410-2 #### [facility] CLIA [id number] [address] [place] [address] [place] Neutrophils (Bld) [#/Vol] 6.23 10*3/uL Normal 1.45-7.50 [facility] Comment on above: Order Comment: Speci men Type: BLOOD SPECIMEN Ordering Facility: External Submitter Address: , , Performed By: #### 5 8410-2 #### [facility] CLIA [id number] [address] [place] [id number] [place] Neutrophils/100 WBC (Bld) 61.6 % Normal [facility] Comment on above: Order Comment: Speci men Type: BLOOD SPECIMEN Ordering Facility: External Submitter Address: , , Performed By: #### 5 8410-2 #### [facility] CLIA [id number] [address] [place] [address] [place] Nucleated RBC (Bld) [#/Vol] 10*3/uL Normal <0.01 [facility] Comment on above: Order Comment: Speci men Type: BLOOD SPECIMEN Ordering Facility: External Submitter Address: , , Performed By: #### 5 8410-2 #### [facility] CLIA [id number] [address] [place] [address] [place] Nucleated RBC/100 WBC (Bld) [Ratio] 0.0 /100 WBC Normal [facility] Comment on above: Order Comment: Speci men Type: BLOOD SPECIMEN Ordering Facility: External Submitter Address: , , Performed By: #### 5 8410-2 #### [facility] CLIA [id number] [address] [place] [address] [place] Platelet mean volume (Bld) [Entitic vol] 12.6 fL Normal 9.0-12.7 [facility] Comment on above: Order Comment: Speci men Type: BLOOD SPECIMEN Ordering Facility: External Submitter Address: , , Performed By: #### 5 8410-2 #### [facility] CLIA [id number] [address] [place] [address] [place] Platelets (Bld) [#/Vol] 279 10*3/uL Normal 150-400 [facility] Comment on above: Order Comment: Speci men Type: BLOOD SPECIMEN Ordering Facility: External Submitter Address: , , Performed By: #### 5 8410-2 #### [facility] CLIA [id number] [address] [place] [address] [place] RBC (Bld) [#/Vol] 6.19 10*6/uL High 4.20-6.00 [facility] Comment on above: Order Comment: Speci men Type: BLOOD SPECIMEN Ordering Facility: External Submitter Address: , , Performed By: #### 5 8410-2 #### [facility] CLIA [id number] [address] [place] [address] [place] WBC (Bld) [#/Vol] 10.11 10*3/uL Normal 3.70-11.00 [facility] Comment on above: Order Comment: Speci men Type: BLOOD SPECIMEN Ordering Facility: External Submitter Address: , , Performed By: #### 5 8410-2 #### [facility] CLIA [id number] [address] [place] [address] [place] Comprehensive metabolic 2000 panelon 03-25-2023 Albumin [Mass/Vol] 4.6 g/dL Normal 3.9-4.9 [facility] Comment on above: Order Comment: Speci men Type: BLOOD SPECIMEN Ordering Facility: External Submitter Address: , , Performed By: #### 5 8410-2 #### [facility] CLIA [id number] [address] [place] [address] [place] ALP [Catalytic activity/Vol] 70 U/L Normal 38-113 [facility] Comment on above: Order Comment: Speci men Type: BLOOD SPECIMEN Ordering Facility: External Submitter Address: , , Performed By: #### 5 8410-2 #### [facility] CLIA [id number] [address] [place] [address] [place] ALT [Catalytic activity/Vol] 30 U/L Normal 10-54 [facility] Comment on above: Order Comment: Speci men Type: BLOOD SPECIMEN Ordering Facility: External Submitter Address: , , Performed By: #### 5 8410-2 #### [facility] CLIA [id number] [address] [place] [address] [place] Anion gap [Moles/Vol] 17 mmol/L Normal 9-18 [facility] Comment on above: Order Comment: Speci men Type: BLOOD SPECIMEN Ordering Facility: External Submitter Address: , , Performed By: #### 5 8410-2 #### [facility] CLIA [id number] [address] [place] [address] [place] AST [Catalytic activity/Vol] 19 U/L Normal 14-40 [facility] Comment on above: Order Comment: Speci men Type: BLOOD SPECIMEN Ordering Facility: External Submitter Address: , , Performed By: #### 5 8410-2 #### [facility] CLIA [id number] [address] [place] [address] [place] Bilirubin [Mass/Vol] 0.5 mg/dL Normal 0.2-1.3 [facility] Comment on above: Order Comment: Speci men Type: BLOOD SPECIMEN Ordering Facility: External Submitter Address: , , Performed By: #### 5 8410-2 #### [facility] CLIA [id number] [address] [place] [address] [place] Calcium [Mass/Vol] 9.9 mg/dL Normal 8.5-10.2 [facility] Comment on above: Order Comment: Speci men Type: BLOOD SPECIMEN Ordering Facility: External Submitter Address: , , Performed By: #### 5 8410-2 #### [facility] CLIA [id number] [address] [place] [address] [place] Chloride [Moles/Vol] 101 mmol/L Normal 97-105 [facility] Comment on above: Order Comment: Speci men Type: BLOOD SPECIMEN Ordering Facility: External Submitter Address: , , Performed By: #### 5 8410-2 #### [facility] CLIA [id number] [address] [place] [address] [place] CO2 [Moles/Vol] 19 mmol/L Low 22-30 [facility] Comment on above: Order Comment: Speci men Type: BLOOD SPECIMEN Ordering Facility: External Submitter Address: , , Performed By: #### 5 8410-2 #### [facility] CLIA [id number] [facility] [place] [address] [place] Creatinine [Mass/Vol] 1.05 mg/dL Normal 0.73-1.22 [facility] Comment on above: Order Comment: Speci joni Type: BLOOD SPECIMEN Ordering Facility: External Submitter Address: , , Performed By: #### 5 8410-2 #### [facility] CLIA [id number] [facility] [place] [address] [place] ESTIMATED GLOMERULAR FILTRATION RATE 96 mL/min/1.73m??? Normal >=60 [facility] Comment on above: Order Comment: Lili quinones Type: BLOOD SPECIMEN Ordering Facility: External Submitter Address: , , Result Comment: Zunilda mated Glomerular Filtration Rate (eGFR) is calculated using the 2020 CKD-EPI creatinine equation. This equation utilizes serum creatinine, sex, and age as parameters. The creatinine assay has traceable calibration to isotope dilution-mass spectrometry. Refer to KDIGO guidelines for clinical interpretation. In patients with unstable renal function, e.g. those with acute kidney injury, the eGFR may not accurately reflect actual GFR. Performed By: #### 5 8410-2 #### [facility] CLIA [id number] [address] [place] [address] [place] Glucose [Mass/Vol] 77 mg/dL Normal 74-99 [facility] Comment on above: Order Comment: Lili quinones Type: BLOOD SPECIMEN Ordering Facility: External Submitter Address: , , Result Comment: The [place] [employer] (ADA) provides guidance for cutoff values for fasting glucose and random glucose. The ADA defines fasting as no caloric intake for at least 8 hours. Fasting plasma glucose results between 100 to 125 mg/dL indicate increased risk for diabetes (prediabetes). Fasting plasma glucose results greater than or equal to 126 mg/dL meet the criteria for diagnosis of diabetes. In the absence of unequivocal hyperglycemia, results should be confirmed by repeat testing. In a patient with classic symptoms of hyperglycemia or hyperglycemic crisis, random plasma glucose results greater than or equal to 200 mg/dL meet the criteria for diagnosis of diabetes. Reference: Standards of Medical Care in Diabetes 2016, [place] [employer]. Diabetes Care. 2016.39(Suppl 1). Performed By: #### 5 8410-2 #### [facility] CLIA [id number] [address] [place] [address] [place] Potassium [Moles/Vol] 4.5 mmol/L Normal 3.7-5.1 [facility] Comment on above: Order Comment: Keeshai joni Type: BLOOD SPECIMEN Ordering Facility: External Submitter Address: , , Performed By: #### 5 8410-2 #### [facility] CLIA [id number] [address] [place] [address] [place] Protein [Mass/Vol] 7.4 g/dL Normal 6.3-8.0 [facility] Comment on above: Order Comment: Lili quinones Type: BLOOD SPECIMEN Ordering Facility: External Submitter Address: , , Performed By: #### 5 8410-2 #### [facility] CLIA [id number] [address] [place] [address] [place] Sodium [Moles/Vol] 137 mmol/L Normal 136-144 [facility] Comment on above: Order Comment: Lili quinones Type: BLOOD SPECIMEN Ordering Facility: External Submitter Address: , , Performed By: #### 5 8410-2 #### [facility] CLIA [id number] [address] [place] [address] [place] Urea nitrogen [Mass/Vol] 24 mg/dL Normal 9-24 [facility] Comment on above: Order Comment: Lili quinones Type: BLOOD SPECIMEN Ordering Facility: External Submitter Address: , , Performed By: #### 5 8410-2 #### [facility] CLIA [id number] [address] [place] [address] [place] Urate SerPl-mCncon 3 Urate [Mass/Vol] 11.0 mg/dL High 4.0-8.1 [facility] Comment on above: Order Comment: Speci men Type: BLOOD SPECIMEN Ordering Facility: External Submitter Address: , , Performed By: #### 5 8410-2 #### [facility] CLIA [id number] [address] [place] [address] OF [facility] C-REACTIVE PROTEIN (CRP)on 0 08-27-2022 CRP [Mass/Vol] 0.7 mg/dL <0.9 mg/dL [facility] Comprehensive metabolic 2000 panelon 08-27-2022 Albumin [Mass/Vol] 4.4 g/dL 3.9 - 4.9 g/dL [facility] ALP [Catalytic activity/Vol] 67 U/L 38 - 113 U/L [facility] ALT [Catalytic activity/Vol] 37 U/L 10 - 54 U/L [facility] Anion gap [Moles/Vol] 15 mmol/L 9 - 18 mmol/L [facility] AST [Catalytic activity/Vol] 18 U/L 14 - 40 U/L [facility] Bilirubin [Mass/Vol] 0.5 mg/dL 0.2 - 1.3 mg/dL [facility] Calcium [Mass/Vol] 10.0 mg/dL 8.5 - 10.2 mg/dL [facility] Chloride [Moles/Vol] 99 mmol/L 97 - 105 mmol/L [facility] CO2 [Moles/Vol] 26 mmol/L 22 - 30 mmol/L [facility] Creatinine [Mass/Vol] 0.88 mg/dL 0.73 - 1.22 mg/dL [facility] Estimated Glomerular Filtration Rate 116 mL/min/1.73m >=60 mL/min/1.73m [facility] Glucose [Mass/Vol] 76 mg/dL 74 - 99 mg/dL [facility] Potassium [Moles/Vol] 4.6 mmol/L 3.7 - 5.1 mmol/L [facility] Protein [Mass/Vol] 7.6 g/dL 6.3 - 8.0 g/dL [facility] Sodium [Moles/Vol] 140 mmol/L 136 - 144 mmol/L [facility] Urea nitrogen [Mass/Vol] 18 mg/dL 9 - 24 mg/dL [facility] ESR Westergren method (Bld) [Velocity]on 08-27-2022 ESR (Bld) [Velocity] 13 mm/h 0 - 15 mm/hr [facility] URIC ACID BLOODon 08-27-2022 Urate [Mass/Vol] 8.6 mg/dL High 4.0 - 8.1 mg/dL [facility] Surgery Visit Reporton 05-22 Surgery Visit Report [facility] [address] [place] [address] OFFICE VISIT Date of Service: 05/22/22 MR#: [id number] Acct: [id number] Name: UBALDO REHMAN Rep #: [id number] : 1990 Provider: Dr. 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 Antelmo Mclaughlin MD) Gout Request for sterilization Surgical History (Updated 05/22/22 @ 14:42 by Samantha Monique) No history of previous surgery Family History (Updated 05/22/22 @ 14:51 by Samantha Monique) Grandmother Heart disease High cholesterol Father Cancer skin cancer Social History (Updated 05/22/22 @ 14:43 by Samnatha Monique) Smoking Status: Never smoker alcohol intake: current substance use type: does not use HPI HPI HPI: Patient is a 32-year-old male here to discuss sterilization. He is here to discuss vasectomy. His is in agreement. He has no complaints at this time. ROS General General: No weight change, appetite, fatigue, colon cancer, breast cancer or weakness HEENT HEENT: No difficulty swallowing, eye injury, eye surgery, swollen glands or hoarseness Endo Endocrine: No thyroid disease, diabetes mellitus, thyroid cancer, Hair loss, heat intolerance or cold intolerance Skin Skin: No rash or changing moles Breast Breast: No left breast lump, right breast lump, nipple discharge, breast pain, abnormal mammogram, abnormal US or breast enlargement Musc Musculoskeletal: Yes gout; No back problems, arthritis, rheumatoid arthritis or joint pain Cardio Cardiovascular: No murmur, pacemaker, heart disease, atrial fibrillation, high blood pressure, heart attack, heart stent, palpitations, shortness of breat with exertion or chest pain Psych Psychiatric: No depression, anxiety or hearing voices Resp Respiratory: No shortness of breath, No sleep apnea, No cough, No COPD, No asthma, No emphysema and No wheezing Gastro Gastrointestinal: No abdominal pain, No nausea or vomiting, No diarrhea, No constipation, No blood in stool, No acid reflux, No hemorrhoids, No ulcers, No gallbladder problem and No black,tarry stools Sivakumar Hematologic: No blood thinners, No blood disorders, No bleeding, No anemia and No blood clots Neuro Neurologic: No system reviewed and no additional complaints, except as documented, No as per HPI, No abnormal gait, No abnormal hearing, No abnormal movements, No abnormal speech, No behavioral mitchell nges, No burning sensations, No confusion, No convulsions, No disequilibrium, No dizziness, No localized weakness, No frequent falls, No headache(s), No lack of coordination, No loss of vision, No memory loss, No numbness, No other visual disturbances, No radicular pain, No restless legs, No sensory deficit, No syncope, No tingling, No tremor(s), No weakness and No other Exam Const General: cooperative Orientation: alert and oriented x3 HENMT Head: normal to inspection Neck Neck: normal visual inspection and full ROM Chest Chest palpation inspection: normal inspection of the chest Resp Effort Inspection: normal respiratory effort Auscultation: clear to auscultation bilaterally Cardio Rate: regular rate Rhythm: regular rhythm GI Inspection: non-distended Palpation: soft and nontender Skin General: no rashes or lesions noted Neuro General: patient alert and patient oriented x3 Extrem General: full ROM Psych Appearance: grossly normal Mental Status: mental status grossly normal Assessment and Plan Assessment and Plan (1) Sterilization consult: Status: Acute Plan: I discussed bilateral partial vasectomy with the patient in detail. I discussed the procedure in detail as well as the risks of the procedure. I discussed the risks including but not limited to bleeding, infection, injury to spermatic cord, spermatocele. I discussed that this procedure is not perfect and there was a very small failure rate and I also discussed that this is a nonreversible procedure and that he would not be immediately s (more content not included)... Normal [facility] URICon 05-17-2020 Uric Acid Lvl 6.6 mg/dL Normal 3.5-7.2 On License Of [facility] Comment on above: Performed By: #### U [facility] #### [id number] [place], [place] [address] Vital Signs Date Time Vital Sign Value Performing Clinician Facility 12-04-2023 13:44-0400 Body mass index (BMI) [Ratio] 44.01 kg/m2 Lam Athy PA-C Work Phone: [facility] 12-04-2023 13:44-0400 Body temperature 97.59 [degF] Lam Athy PA-C Work Phone: [facility] 12-04-2023 13:44-0400 Body weight 131.3 kg Lam Athy PA-C Work Phone: [facility] 12-04-2023 13:44-0400 Diastolic blood pressure 100 mm[Hg] Lam Athy PA-C Work Phone: [facility] 12-04-2023 13:44-0400 Heart rate 87 /min Lam Athy PA-C Work Phone: [facility] 12-04-2023 13:44-0400 Respiratory rate 21 /min Lam Athy PA-C Work Phone: [facility] 12-04-2023 13:44-0400 SaO2% (BldA) [Mass fraction] 98 % Lam Sosa PA-C Work Phone: [facility] 12-04-2023 13:44-0400 Systolic blood pressure 154 mm[Hg] Lam Sosa PA-C Work Phone: [facility] 05-21-2023 16:15-0400 Body temperature 96.6 [degF] Jasbir Aranda MD Work Phone: [facility] 05-21-2023 16:15-0400 Body weight 135.4 kg Jasbir Aranda MD Work Phone: [facility] 05-21-2023 16:15-0400 Diastolic blood pressure 69 mm[Hg] Jasbir Aranda MD Work Phone: [facility] 05-21-2023 16:15-0400 Heart rate 112 /min Jasbir Aranda MD Work Phone: [facility] 05-21-2023 16:15-0400 Systolic blood pressure 127 mm[Hg] Jasbir Aranda MD Work Phone: [facility] 08-27-2022 14:50-0500 Body height 172.7 cm Jasbir Aranda MD Work Phone: [facility] 08-27-2022 14:50-0500 Body weight 131.54 kg Jasbir Aranda MD Work Phone: [facility] 08-27-2022 14:50-0500 Diastolic blood pressure 86 mm[Hg] Jasbir Aranda MD Work Phone: [facility] 08-27-2022 14:50-0500 Heart rate 82 /min Jasbir Aranda MD Work Phone: [facility] 08-27-2022 14:50-0500 Systolic blood pressure 149 mm[Hg] Jasbir Aranda MD Work Phone: [facility] 01-16-2022 08:13-0400 Body height 172.72 cm [facility] Work Phone: 01-16-2022 08:13-0400 Body weight 133.35 kg [facility] Work Phone: Encounters Encounter Date Encounter Type Care Provider Facility Start: 10-04-2024 End: 10-06-2024 Refill Jasbir Aranda MD Work Phone: Rheumatology Comment on above: Refill Request Start: 02-07-2024 End: 02-07-2024 ambulatory GAYATHRI Mcallister (JOÃO) DIAMOND Facility:[facility] Start: 12-04-2023 End: 12-04-2023 ambulatory GAYATHRI Mcallister (JOÃO) SALINAS Facility:[facility] Start: 12-04-2023 End: 12-04-2023 Patient encounter procedure Lam Sosa PA-C Work Phone: [facility] Comment on above: Viral illness (Prima ry Dx) Start: 11-25-2023 End: 11-25-2023 ambulatory JASBIR ARANDA Facility:[facility] Start: 10-14-2023 End: 10-14-2023 ambulatory JASBIR ARANDA Facility:[facility] Start: 05-27-2023 ambulatory Jasbir hess MD Work Phone: [facility] Start: 05-27-2023 Follow-up encounter Jasbir gatica MD Work Phone: Rheumatology Comment on above: Follow Up Start: 05-21-2023 End: 05-21-2023 ambulatory JASBIR ARANDA Facility:[facility] Start: 05-21-2023 End: 05-21-2023 Patient encounter procedure Jasbir Aranda MD Work Phone: Rheumatology Comment on above: Acute idiopathic gou t, unspecified site (Primary Dx); Pain in joint, multiple sites Start: 03-28-2023 ambulatory Jasbir hess MD Work Phone: Rheumatology Comment on above: Results Start: 03-28-2023 E-mail encounter myrna m caregiver Jasbir Aranda MD Work Phone: [facility] Start: 03-27-2023 Refill Jasbir hess MD Work Phone: Rheumatology Comment on above: Refill Request Start: 03-25-2023 End: 03-25-2023 ambulatory JASBIR ARANDA Facility:[facility] Start: 02-16-2023 ambulatory Jasbir hess MD Work Phone: Rheumatology Comment on above: Gout Start: 01-09-2023 Refill Jasbir hess MD Work Phone: Rheumatology Comment on above: Refill Request Start: 11-01-2022 Orders Only Jasbir hess MD Work Phone: Rheumatology Comment on above: Acute idiopathic gou t, unspecified site (Primary Dx); History of joint swelling; Pain in joint, multiple sites Start: 10-31-2022 ambulatory Jasbir hess MD Work Phone: Rheumatology Comment on above: Gout Start: 08-29-2022 ambulatory Jasbir hess MD Work Phone: Rheumatology Comment on above: Gout Start: 08-27-2022 End: 08-27-2022 Subsequent hospital visit by physician Xr Main [facility] Radiology Comment on above: Canceled (Pt cx: Joe ointment Conflict) Start: 08-27-2022 End: 08-27-2022 Patient encounter procedure Jasbir Aranda MD Work Phone: Rheumatology Comment on above: Acute idiopathic gou t, unspecified site (Primary Dx); Pain in joint, multiple sites; History of joint swelling; History of cigar smoking Start: 05-22-2022 End: 05-22-2022 ambulatory [facility] Facility:[facility] Start: 02-19-2022 ambulatory [facility] Facility: [facility] Start: 01-16-2022 End: 02-09-2022 ambulatory [facility] Facility:[facility] Start: 01-16-2022 End: 02-08-2022 Discharged Recurring [facility] Procedures Date Procedure Procedure Detail Performing Clinician Start: 02-07-2024 Lipid 1996 panel - S dylon or Plasma Jasbir Aranda MD Work Phone: Start: 12-04-2023 KAILYN Hess MOLECULAR (POC) [facility] Provider Plan of Treatment Date Care Activity Detail Author Start: 04-14-2029 Urine microalbumin profile [facility] Start: 02-06-2029 Lipid panel Lipid Screening [facility] Start: 04-12-2024 Covid-19 Vaccine ( season) Covid-19 Vaccine ( season) [facility] Start: 04-12-2024 Influenza vaccination C [facility] Start: 08-12-2023 Behavioral Health Screening Behavioral Health Screening [facility] Start: 04-12-2023 Covid-19 Vaccine ( season) Covid-19 Vaccine () [facility] Start: 04-12-2023 Influenza vaccination C [facility] Start: 03-22-2023 End: 05-22-2023 CBC W Auto Differential panel - Blood CBC + DIFF Lab Routine Acute idiopathic gout, unspecified site Pain in joint, multiple sites Expected: 03/22/2023, Expires: 05/22/2023 [facility] Work Phone: Comment on above: Expected: 03/22/2023 , Expires: 05/22/2023 Start: 03-22-2023 End: 05-22-2023 Comprehensive metabolic 2000 panel - Serum or Plasma COMP METABOLIC PANEL Lab Routine Acute idiopathic gout, unspecified site Pain in joint, multiple sites Expected: 03/22/2023, Expires: 05/22/2023 [facility] Work Phone: Comment on above: Expected: 03/22/2023 , Expires: 05/22/2023 Start: 03-22-2023 End: 05-22-2023 Urate [Mass/volume] in Serum or Plasma URIC ACID BLOOD Lab Routine Acute idiopathic gout, unspecified site Pain in joint, multiple sites Expected: 03/22/2023, Expires: 05/22/2023 [facility] Work Phone: Comment on above: Expected: 03/22/2023 , Expires: 05/22/2023 Start: 01-10-2023 End: 03-12-2023 CBC W Auto Differential panel - Blood CBC + DIFF Lab Routine Acute idiopathic gout, unspecified site Expected: 01/10/2023, Expires: 03/12/2023 [facility] Work Phone: Comment on above: Expected: 01/10/2023 , Expires: 03/12/2023 Start: 01-10-2023 End: 03-12-2023 Comprehensive metabolic 2000 panel - Serum or Plasma COMP METABOLIC PANEL Lab Routine Acute idiopathic gout, unspecified site Expected: 01/10/2023, Expires: 03/12/2023 [facility] Work Phone: Comment on above: Expected: 01/10/2023 , Expires: 03/12/2023 Start: 01-10-2023 End: 03-12-2023 Urate [Mass/volume] in Serum or Plasma URIC ACID BLOOD Lab Routine Acute idiopathic gout, unspecified site Expected: 01/10/2023, Expires: 03/12/2023 [facility] Work Phone: Comment on above: Expected: 01/10/2023 , Expires: 03/12/2023 Start: 11-01-2022 End: 01-01-2023 CBC W Auto Differential panel - Blood CBC + DIFF Lab Routine Acute idiopathic gout, unspecified site History of joint swelling Pain in joint, multiple sites Expected: 11/01/2022, Expires: 01/01/2023 [facility] Work Phone: Comment on above: Expected: 11/01/2022 , Expires: 01/01/2023 Start: 11-01-2022 End: 01-01-2023 Comprehensive metabolic 2000 panel - Serum or Plasma COMP METABOLIC PANEL Lab Routine Acute idiopathic gout, unspecified site History of joint swelling Pain in joint, multiple sites Expected: 11/01/2022, Expires: 01/01/2023 [facility] Work Phone: Comment on above: Expected: 11/01/2022 , Expires: 01/01/2023 Start: 11-01-2022 End: 01-01-2023 Urate [Mass/volume] in Serum or Plasma URIC ACID BLOOD Lab Routine Acute idiopathic gout, unspecified site History of joint swelling Pain in joint, multiple sites Expected: 11/01/2022, Expires: 01/01/2023 [facility] Work Phone: Comment on above: Expected: 11/01/2022 , Expires: 01/01/2023 Start: 10-27-2022 End: 11-27-2022 CBC W Auto Differential panel - Blood CBC + DIFF Lab Routine Acute idiopathic gout, unspecified site Pain in joint, multiple sites History of joint swelling Expected: 10/27/2022, Expires: 11/27/2022 [facility] Work Phone: Comment on above: Expected: 10/27/2022 , Expires: 11/27/2022 Start: 10-27-2022 End: 11-27-2022 Comprehensive metabolic 2000 panel - Serum or Plasma COMP METABOLIC PANEL Lab Routine Acute idiopathic gout, unspecified site Pain in joint, multiple sites History of joint swelling Expected: 10/27/2022, Expires: 11/27/2022 [facility] Work Phone: Comment on above: Expected: 10/27/2022 , Expires: 11/27/2022 Start: 10-27-2022 End: 11-27-2022 Urate [Mass/volume] in Serum or Plasma URIC ACID BLOOD Lab Routine Acute idiopathic gout, unspecified site Pain in joint, multiple sites History of joint swelling Expected: 10/27/2022, Expires: 11/27/2022 [facility] Work Phone: Comment on above: Expected: 10/27/2022 , Expires: 11/27/2022 Start: 08-12-2022 DEPRESSION ASSESSMENT DEPRESSION ASS ESSMENT [facility] Start: 04-12-2022 Influenza vaccination INFLUENZA (#1) [facility] Start: 2007 Anxiety Screening Anxiety Screening [facility] Start: 2007 Depression Screening Depression Scre gene [facility] Start: 2007 HEPATITIS C SCREENING HEPATITIS C NH KSENIA [facility] Start: 2007 HIV SCREENING HIV SCREENING [facility] Start: 2007 HIV screening HIV Screening [facility] Start: 1989 COVID-19 VACCINE (#1) COVID-19 VACCI NE (#1) [facility] CBC W Auto Different ial panel - Blood CBC + DIFF Lab Routine Acute idiopathic gout, unspecified site Pain in joint, multiple sites History of joint swelling History of cigar smoking 08/27/2022 4:18 PM EST [facility] Work Phone: End: 09-26-2023 XR ANKLE GENERAL 3V AP/LAT/OBL BILATERAL XR ANKLE GENERAL 3V AP/LAT/OBL BILATERAL Radiology Routine Acute idiopathic gout, unspecified site Pain in joint, multiple sites History of joint swelling History of cigar smoking 1 Occurrences starting 08/27/2022 until 09/26/2023 [facility] Work Phone: Comment on above: 1 Occurrences starti ng 08/27/2022 until 09/26/2023 End: 09-28-2023 XR ANKLE GENERAL 3V AP/LAT/OBL BILATERAL XR ANKLE GENERAL 3V AP/LAT/OBL BILATERAL Radiology Routine Acute idiopathic gout, unspecified site Pain in joint, multiple sites 1 Occurrences starting 08/29/2022 until 09/28/2023 [facility] Work Phone: Comment on above: 1 Occurrences starti ng 08/29/2022 until 09/28/2023 End: 09-26-2023 XR FOOT GENERAL 3V AP/LAT/OBL BILATERAL XR FOOT GENERAL 3V AP/LAT/OBL BILATERAL Radiology Routine Acute idiopathic gout, unspecified site Pain in joint, multiple sites History of joint swelling History of cigar smoking 1 Occurrences starting 08/27/2022 until 09/26/2023 [facility] Work Phone: Comment on above: 1 Occurrences starti ng 08/27/2022 until 09/26/2023 End: 09-28-2023 XR FOOT GENERAL 3V AP/LAT/OBL BILATERAL XR FOOT GENERAL 3V AP/LAT/OBL BILATERAL Radiology Routine Acute idiopathic gout, unspecified site Pain in joint, multiple sites 1 Occurrences starting 08/29/2022 until 09/28/2023 [facility] Work Phone: Comment on above: 1 Occurrences starti ng 08/29/2022 until 09/28/2023 [facility] Immunizations Immunization Date Immunization Notes Care Provider Chan hi 05-23-2020 influenza, injectabl e, quadrivalent, preservative free Jasbir Aranda MD Work Phone: [facility] 05-23-2020 influenza virus vaccine, unspecified formulation Jasbir Aranda MD Work Phone: [facility] 05-26-2019 influenza, injectabl e, quadrivalent, preservative free Jasbir Aranda MD Work Phone: [facility] 04-14-2019 tetanus toxoid, redu tessie diphtheria toxoid, and acellular pertussis vaccine, adsorbed Jasbir Aranda MD Work Phone: [facility] 05-23-2018 Influenza, injectabl e, Madin Livier Canine Kidney, preservative free, quadrivalent Jasbir Aranda MD Work Phone: [facility] 04-24-2017 influenza, injectabl e, quadrivalent, preservative free Jasbir Aranda MD Work Phone: [facility] 06-06-2016 influenza, injectabl e, quadrivalent, preservative free Jasbir Aranda MD Work Phone: [facility] 05-04-2014 influenza, seasonal, injectable, preservative free Jasbir Aranda MD Work Phone: [facility] 05-14-2013 influenza, seasonal, injectable, preservative free Jasbir Aranda MD Work Phone: [facility] 04-10-2008 hepatitis B vaccine, pediatric or pediatric/adolescent dosage Jasbir Aranda MD Work Phone: [facility] Work Phone: 03-13-2007 hepatitis B vaccine, pediatric or pediatric/adolescent dosage Jasbir Aranda MD Work Phone: [facility] 03-13-2007 Meningococcal, MCV4, unspecified conjugate formulation(groups A, C, Y and W-[id number]) Jasbir Aranda MD Work Phone: [facility] 03-12-2002 measles, mumps and rubella virus vaccine Jasbir Aranda MD Work Phone: [facility] Work Phone: 03-12-2002 tetanus and diphther ia toxoids, adsorbed, preservative free, for adult use (2 Lf of tetanus toxoid and 2 Lf of diphtheria toxoid) Jasbir Aranda MD Work Phone: [facility] 05-03-1994 diphtheria, tetanus toxoids and acellular pertussis vaccine Jasbir Aranda MD Work Phone: [facility] Work Phone: 05-03-1994 trivalent poliovirus vaccine, live, oral Jasbir Aranda MD Work Phone: [facility] 08-12-1993 Chicken Pox (disease) Ben Aranda MD Work Phone: [facility] Work Phone: 10-18-1990 diphtheria, tetanus toxoids and pertussis vaccine Jasbir Aranda MD Work Phone: [facility] Work Phone: 10-18-1990 trivalent poliovirus vaccine, live, oral Jasbir Aranda MD Work Phone: [facility] 06-21-1990 haemophilus influenz ae type b vaccine, PRP-D conjugate Jasbir Aranda MD Work Phone: [facility] 06-21-1990 measles, mumps and rubella virus vaccine Jasbir Aranda MD Work Phone: [facility] Work Phone: 03-01-1990 tuberculin skin test ; purified protein derivative solution, intradermal Jasbir Aranda MD Work Phone: [facility] 1989 diphtheria, tetanus toxoids and pertussis vaccine Jasbir Aranda MD Work Phone: [facility] Work Phone: 1989 diphtheria, tetanus toxoids and pertussis vaccine Jasbir Aranda MD Work Phone: [facility] Work Phone: 1989 trivalent poliovirus vaccine, live, oral Jasbir Aranda MD Work Phone: [facility] 1989 diphtheria, tetanus toxoids and pertussis vaccine Jasbir Aranda MD Work Phone: [facility] Work Phone: 1989 trivalent poliovirus vaccine, live, oral Jasbir Aranda MD Work Phone: [facility] Payers Date Payer Category Payer Self-pay [id number] 2020 [employer] Blue [facility] Member Subscriber Plan / Payer (Effective 2020-Present) Name: Jimmy Ubaldo Relation to Subscriber: Self Name: Ubaldo Rehman Payer ID: [id number] (NAIC) Type: PPO Address: [facility] [address] [place] [id number] 2020 Unknown [employer]UE [employer]E SS PPO [id number] 2020-Present [phone] [address] [place] [address] [facility] [id number] 2020 Unknown [id number] Unknown SELF PAY INSURANCE [id number] Unknown [id number] Unknown [id number] Unknown [id number] Social History Date Type Detail Facility Start: 06-19-2019 Tobacco smoking status [facility] Unknown if ever smoked [facility] Work Phone: Start: 1990 Sex Assigned At Male [facility] Work Phone: Start: 08-27-2022 Tobacco smoking status UTIS Ex-smoker [facility] End: 08-04-2009 History of tobacco use Current smoker [facility] End: 08-04-2009 History of tobacco use Cigarette Smoker [facility] Start: 08-27-2022 Tobacco use and exposure Smokeless tobacco non-user [facility] Start: 08-27-2022 End: 12-04-2023 Alcohol intake Current drinker of alcohol (finding) [facility] Start: 08-27-2022 End: 05-21-2023 Alcohol intake [facility] Start: 08-27-2022 Tobacco Comment cigars occasionally 1/wk [facility] Start: 1990 Sex Assigned At Not on file [facility] Start: 08-27-2022 End: 05-21-2023 Tobacco use panel [facility] National Score (1-100), lower number is lower risk 67 [facility] Clinical Notes 08-27-2022 to 10-05-2024 Telephone Encounter - Delma Arshad RN - 10/05/2024 9:12 AM ESTTelephone Encounter - Delma Arshad RN - 10/05/2024 9:12 AM Lam Escobar PA-C - 12/04/2023 1:58 PM EDTPatient Instructions Note Date & Type Note Facility 10-05-2024 Telephone encounter Note Most recent Rheumatology visit: 05/21/2023 (with Jasbir Aranda) Last Bone Density on file: None on file Rheumatology Care Team: None on file Recent Office Visits - This Specialty 05/21/2023 Acute idiopathic gout, unspecified site Rheumatology Jasbir Aranda MD 08/27/2022 Acute idiopathic gout, unspecified site Rheumatology Jasbir Aranda MD Upcoming Rheumatology Appointments - Next 365 Days No appointments to display CBC: None on file in the last 6 months Vitamin D: None on file in the last 6 months LFT: None on file in the last 6 months Hepatic Function: Creatinine: None on file in the last 6 months ESR/CRP: None on file in the last 6 months Uric Acid: None on file in the last 6 months Open Standing (Multiple Instance) Lab Orders None Open Future (Single Instance) Lab Orders None Delma Arshad RN [facility] 10-05-2024 Miscellaneous Notes Most recent Rheumatology visit: 05/21/2023 (with Jasbir Aranda) Last Bone Density on file: None on file Rheumatology Care Team: None on file Recent Office Visits - This Specialty 05/21/2023 Acute idiopathic gout, unspecified site Rheumatology Jasbir Aranda MD 08/27/2022 Acute idiopathic gout, unspecified site Rheumatology Jasbir Aranda MD Upcoming Rheumatology Appointments - Next 365 Days No appointments to display CBC: None on file in the last 6 months Vitamin D: None on file in the last 6 months LFT: None on file in the last 6 months Hepatic Function: Creatinine: None on file in the last 6 months ESR/CRP: None on file in the last 6 months Uric Acid: None on file in the last 6 months Open Standing (Multiple Instance) Lab Orders None Open Future (Single Instance) Lab Orders None Delma Arshad RN documented in this encounter [facility] 12-04-2023 Note HNO ID: [id number] Author: LAM SOSA PA-C Service: ? Author Type: Physician [employer] Technician Type: Progress Notes Filed: 12/04/2023 14:00 Note Text: This note was created using NoteWriter. Subjective Ubaldo Rehman is a 33 year old male. HPI Patient presents with sore throat and headache since this morning. He is also had a cough. Denies nasal congestion or ear pain. No vomiting or diarrhea. No chest pain or shortness of breath. No abdominal pain. His friend had strep throat recently so he just wanted to come in and be tested. No OTC meds used. Review of Systems Constitutional: Negative. HENT: Positive for sore throat. Negative for congestion, ear pain, rhinorrhea, sinus pressure and sinus pain. Respiratory: Positive for cough. Genitourinary: Negative. Musculoskeletal: Negative. Neurological: Positive for headaches. All other systems reviewed and are negative. PAST MEDICAL HISTORY Diagnosis Date concussion 8th grade fell off horse PMH - PAST MEDICAL HISTORY OF 03/29/2000 normal color vision PMH - PAST MEDICAL HISTORY OF 09/2002 glasses/speech therapy PMH - PAST MEDICAL HISTORY OF 7th grade left ankle torn ligaments PMH - PAST MEDICAL HISTORY OF 8th grade right wrist injury Current Outpatient Medications Medication Sig Dispense Refill allopurinol (ZYLOPRIM) 300 mg tablet Take 1 tablet by mouth once daily. 90 tablet 1 colchicine 0.6 mg tablet Take 1 tablet by mouth once daily. 30 tablet 2 No current facility-administered medications for this visit. PAST SURGICAL HISTORY Procedure Laterality Date NONE FAMILY HISTORY Problem Relation Age of Onset Arthritis Paternal Grandmother Hypertension Maternal Grandmother Heart Maternal Grandmother Emphysema Maternal Grandfather Social History Tobacco Use Smoking status: Former Types: Cigarettes Quit date: 08/04/2009 Years since quittin.3 Smokeless tobacco: Never Tobacco comments: cigars occasionally 1/wk Substance Use Topics Alcohol use: Yes Alcohol/week: 6.0 standard drinks of alcohol Types: 6 Cans of Beer (12oz) per week Drug use: No Objective BP 154/100 Pulse 87 Temp 36.4 ?C (97.6 ?F) Resp 21 Wt 131.3 kg (289 lb 7.4 oz) SpO2 98% BMI 44.01 kg/m? Physical Exam Vitals reviewed. Constitutional: Appearance: Normal appearance. HENT: Head: Normocephalic and atraumatic. Right Ear: Tympanic membrane, ear canal and external ear normal. Left Ear: Tympanic membrane, ear canal and external ear normal. Nose: Nose normal. Mouth/Throat: Mouth: Mucous membranes are moist. Pharynx: Posterior oropharyngeal erythema present. No oropharyngeal exudate. Cardiovascular: Rate and Rhythm: Normal rate and regular rhythm. Heart sounds: Normal heart sounds. Pulmonary: Effort: Pulmonary effort is normal. Breath sounds: Normal breath sounds. Musculoskeletal: Cervical back: Neck supple. Skin: General: Skin is warm and dry. Findings: No rash. Neurological: Mental Status: He is alert. Assessment and Plan ASSESSMENT/PLAN: 1. Viral illness - ICD9: 079.99, ICD10: B34.9 - Discussed viral etiology and rationale for treatment. - Group A strep molecular testing negative - Symptomatic treatment with prn analgesia - Supportive care with fluids and rest - The patient may also use warm salt water gargles, throat lozenges and/or OTC throat spray as needed. - Follow up in 3-5 days if symptoms persist or sooner if worsening of symptoms Lam Sosa PA-C [facility] 12-04-2023 History of Present illness Narrative This note was created using [employer]. Subjective Ubaldo Rehman is a 33 year old male. HPI Patient presents with sore throat and headache since this morning. He is also had a cough. Denies nasal congestion or ear pain. No vomiting or diarrhea. No chest pain or shortness of breath. No abdominal pain. His friend had strep throat recently so he just wanted to come in and be tested. No OTC meds used. Review of Systems Constitutional: Negative. HENT: Positive for sore throat. Negative for congestion, ear pain, rhinorrhea, sinus pressure and sinus pain. Respiratory: Positive for cough. Genitourinary: Negative. Musculoskeletal: Negative. Neurological: Positive for headaches. All other systems reviewed and are negative. PAST MEDICAL HISTORY Diagnosis Date concussion 8th grade fell off horse PMH - PAST MEDICAL HISTORY OF 03/29/2000 normal color vision PMH - PAST MEDICAL HISTORY OF 09/2002 glasses/speech therapy PMH - PAST MEDICAL HISTORY OF 7th grade left ankle torn ligaments PMH - PAST MEDICAL HISTORY OF 8th grade right wrist injury Current Outpatient Medications Medication Sig Dispense Refill allopurinol (ZYLOPRIM) 300 mg tablet Take 1 tablet by mouth once daily. 90 tablet 1 colchicine 0.6 mg tablet Take 1 tablet by mouth once daily. 30 tablet 2 No current facility-administered medications for this visit. PAST SURGICAL HISTORY Procedure Laterality Date NONE FAMILY HISTORY Problem Relation Age of Onset Arthritis Paternal Grandmother Hypertension Maternal Grandmother Heart Maternal Grandmother Emphysema Maternal Grandfather Social History Tobacco Use Smoking status: Former Types: Cigarettes Quit date: 08/04/2009 Years since quittin.3 Smokeless tobacco: Never Tobacco comments: cigars occasionally 1/wk Substance Use Topics Alcohol use: Yes Alcohol/week: 6.0 standard drinks of alcohol Types: 6 Cans of Beer (12oz) per week Drug use: No Objective BP 154/100 Pulse 87 Temp 36.4 C (97.6 F) Resp 21 Wt 131.3 kg (289 lb 7.4 oz) SpO2 98% BMI 44.01 kg/m Physical Exam Vitals reviewed. Constitutional: Appearance: Normal appearance. HENT: Head: Normocephalic and atraumatic. Right Ear: Tympanic membrane, ear canal and external ear normal. Left Ear: Tympanic membrane, ear canal and external ear normal. Nose: Nose normal. Mouth/Throat: Mouth: Mucous membranes are moist. Pharynx: Posterior oropharyngeal erythema present. No oropharyngeal exudate. Cardiovascular: Rate and Rhythm: Normal rate and regular rhythm. Heart sounds: Normal heart sounds. Pulmonary: Effort: Pulmonary effort is normal. Breath sounds: Normal breath sounds. Musculoskeletal: Cervical back: Neck supple. Skin: General: Skin is warm and dry. Findings: No rash. Neurological: Mental Status: He is alert. Assessment and Plan ASSESSMENT/PLAN: 1. Viral illness - ICD9: 079.99, ICD10: B34.9 - Discussed viral etiology and rationale for treatment. - Group A strep molecular testing negative - Symptomatic treatment with prn analgesia - Supportive care with fluids and rest - The patient may also use warm salt water gargles, throat lozenges and/or OTC throat spray as needed. - Follow up in 3-5 days if symptoms persist or sooner if worsening of symptoms Lam Sosa PA-C documented in this encounter [facility] 05-21-2023 Note HNO ID: [id number] Author: Jasbir Aranda MD Service: ? Author Type: Physician Type: Progress Notes Filed: 05/30/2023 7:06 PM Note Text: Rheumatology History AND Physical Patient name: Ubaldo Rehman Requesting provider: No att. providers found SUBJECTIVE INITIAL RHEUMATOLOGY VISIT 08/27/2022 (with Jasbir Aranda): Mr. Ubaldo Rehman is a 32 year old male who has a past medical history of concussion, former smoker, gout, smoking who presents for rheumatologic evaluation. Patient is from [place], [place] with minimal records in [facility] system. PSHx: He has a past surgical history that includes none. Allergies: He is allergic to pollen. Current Meds: lipitor, colchicine PRN flare Family History: family history includes Arthritis in his paternal grandmother; Emphysema in his maternal grandfather; Heart in his maternal grandmother; Hypertension in his maternal grandmother. Social History: He reports that he quit smoking about 13 years ago. His smoking use included cigarettes. He has never used smokeless tobacco. He reports current alcohol use of about 15.0 standard drinks of alcohol per week. He reports that he does not use drugs. Labs: CBC Latest Ref Rng AND Units 03/25/2023 01/01/2023 08/27/2022 12/11/2006 WBC 3.70 - 11.00 k/uL 10.11 6.05 12.65(H) - HEMOGLOBIN 13.0 - 17.0 g/dL 16.5 14.4 16.0 - HEMOGLOBIN, MILAGRO 14.0 - 18.0 g/dL - - - 15.2 HEMATOCRIT 39.0 - 51.0 % 51.5(H) 45.8 50.2 - PLATELETS 150 - 400 k/uL 279 229 305 - ABS NEUT (ANC) 1.45 - 7.50 k/uL 6.23 2.60 8.60(H) - ABS NEUT, MILAGRO 2.0 - 8.1 k/uL - - - 6.7 ABS LYMP, MILAGRO 1.0 - 5.5 k/uL - - - 2.4 ABS LYMPH 1.00 - 4.00 k/uL 2.51 2.06 3.04 - CMP Latest Ref Rng AND Units 03/25/2023 01/01/2023 08/27/2022 SODIUM 136 - 144 mmol/L 137 141 140 POTASSIUM 3.7 - 5.1 mmol/L 4.5 4.6 4.6 CHLORIDE 97 - 105 mmol/L 101 104 99 CO2 22 - 30 mmol/L 19(L) 28 26 GLUCOSE 74 - 99 mg/dL 77 90 76 BUN 9 - 24 mg/dL 24 18 18 CREATININE 0.73 - 1.22 mg/dL 1.05 1.04 0.88 CALCIUM, TOTAL 8.5 - 10.2 mg/dL 9.9 9.9 10.0 AST 14 - 40 U/L 19 19 18 ALT 10 - 54 U/L 30 54 37 ALKALINE PHOSPHATASE 38 - 113 U/L 70 63 67 Uric Acid Latest Ref Rng AND Units 03/25/2023 01/01/2023 08/27/2022 URIC ACID 4.0 - 8.1 mg/dL 11.0(H) 7.2 8.6(H) ESR, WSR Latest Ref Rng AND Units 08/27/2022 12/11/2006 WSR 0 - 15 mm/hr 13 - SED RATE, MILAGRO 0 - 10 mm/hr - 18(H) CRP Latest Ref Rng AND Units 08/27/2022 CRP <0.9 mg/dL 0.7 Urinalysis Latest Ref Rng AND Units 04/10/2008 03/12/2006 PROTEIN, URINE Neg mg/dL TRACE neg Labs: 2006: elevated ESR 18 RHEUMATOLOGY EVALUATION 08/27/2022 Patient seen and examined - today is his initial evaluation with [facility] rheumatology. H/o gout, non-crystal proven - diagnosed about 5 years ago - recalls R1st MTP podagra at the time - was seen locally in [place], [place] by siding mechanic at the time who told patient he has gout. No h/o crystal proven diagnosis. Has experienced gouty flares over MTP-11 joints b/l, dorsum of feet and more recently ankles b/l Last flare - last week in which he is in the tail end of - currently finishing a medrol dose rosibel for the gout flare. H/o obesity, hypertriglyceridemia - per patient has about 10 gout flares a year. No known FHx of gout. States his diet is not particularly high in red meat however tries to limit. Does not drink soda/pop, admits to drinking alcoholic beverages weekly, more so bourbon than beer but sometimes beer. Not on any diuretic therapy. Has never been on urate lowering drugs such as allopurinol or febuxostat. No h/o tophi. No h/o CKD; + h/o nephrolithiasis 3 years ago - passed spontaneously Rheumatologic ROS (+) in bold; all rest are negative/denies history of: Chest pain, shortness of breath, history of pleural effusion or pericarditis, oral/nasal ulcers, photosensitivity, rash, history of DVT/PE/ANDor miscarriages, renal disease, seizures, dry eyes, dry mouth, cervical lymphadenopathy or parotid gland swelling, raynaud's phenomenon, alopecia, psoriasis, history of iritis/uveitis or scleritis, nail pitting, dactylitis, history of sacroiliitis or inflammatory bowel disease, arm weakness in raising arms above head, leg weakness in standing up from a seated position, skin tightening, dysphagia, changes in vision, scalp tenderness, jaw claudication, stiffness in shoulders/hip girdle, auricular or nasal chondritis ======= RHEUMATOLOGY FOLLOW UP VISIT 05/21/2023: Patient seen and examined at [facility] ([facility] rheumatology clinic for a follow up visit. Diagnostics since last visit: 04/03: sCr/LFT WNL; uric acid 11.0 CBC WNL Today, first visit with me since 08/2022. Currently on allopurinol 200mg/day and daily colcrys 0.6mg/day Since last visit he had a flare over the summer while traveling in [place] per patient drinking copius amounts of beer and (more content not included)... [facility] 05-21-2023 History of Present illness Narrative Images from the original note were not included. Rheumatology History & Physical Patient name: Ubaldo Rehman Requesting provider: No att. providers found SUBJECTIVE INITIAL RHEUMATOLOGY VISIT 08/27/2022 (with Jasbir Aranda): Mr. Ubaldo Rehman is a 32 year old male who has a past medical history of concussion, former smoker, gout, smoking who presents for rheumatologic evaluation. Patient is from [place], [place] with minimal records in [facility] system. PSHx: He has a past surgical history that includes none. Allergies: He is allergic to pollen. Current Meds: lipitor, colchicine PRN flare Family History: family history includes Arthritis in his paternal grandmother; Emphysema in his maternal grandfather; Heart in his maternal grandmother; Hypertension in his maternal grandmother. Social History: He reports that he quit smoking about 13 years ago. His smoking use included cigarettes. He has never used smokeless tobacco. He reports current alcohol use of about 15.0 standard drinks of alcohol per week. He reports that he does not use drugs. Labs: CBC Latest Ref Rng & Units 03/25/2023 01/01/2023 08/27/2022 12/11/2006 WBC 3.70 - 11.00 k/uL 10.11 6.05 12.65(H) - HEMOGLOBIN 13.0 - 17.0 g/dL 16.5 14.4 16.0 - HEMOGLOBIN, MILAGRO 14.0 - 18.0 g/dL - - - 15.2 HEMATOCRIT 39.0 - 51.0 % 51.5(H) 45.8 50.2 - PLATELETS 150 - 400 k/uL 279 229 305 - ABS NEUT (ANC) 1.45 - 7.50 k/uL 6.23 2.60 8.60(H) - ABS NEUT, MILAGRO 2.0 - 8.1 k/uL - - - 6.7 ABS LYMP, MILAGRO 1.0 - 5.5 k/uL - - - 2.4 ABS LYMPH 1.00 - 4.00 k/uL 2.51 2.06 3.04 - CMP Latest Ref Rng & Units 03/25/2023 01/01/2023 08/27/2022 SODIUM 136 - 144 mmol/L 137 141 140 POTASSIUM 3.7 - 5.1 mmol/L 4.5 4.6 4.6 CHLORIDE 97 - 105 mmol/L 101 104 99 CO2 22 - 30 mmol/L 19(L) 28 26 GLUCOSE 74 - 99 mg/dL 77 90 76 BUN 9 - 24 mg/dL 24 18 18 CREATININE 0.73 - 1.22 mg/dL 1.05 1.04 0.88 CALCIUM, TOTAL 8.5 - 10.2 mg/dL 9.9 9.9 10.0 AST 14 - 40 U/L 19 19 18 ALT 10 - 54 U/L 30 54 37 ALKALINE PHOSPHATASE 38 - 113 U/L 70 63 67 Uric Acid Latest Ref Rng & Units 03/25/2023 01/01/2023 08/27/2022 URIC ACID 4.0 - 8.1 mg/dL 11.0(H) 7.2 8.6(H) ESR, WSR Latest Ref Rng & Units 08/27/2022 12/11/2006 WSR 0 - 15 mm/hr 13 - SED RATE, MILAGRO 0 - 10 mm/hr - 18(H) CRP Latest Ref Rng & Units 08/27/2022 CRP <0.9 mg/dL 0.7 Urinalysis Latest Ref Rng & Units 04/10/2008 03/12/2006 PROTEIN, URINE Neg mg/dL TRACE neg Labs: 2006: elevated ESR 18 RHEUMATOLOGY EVALUATION 08/27/2022 Patient seen and examined - today is his initial evaluation with [facility]ology. H/o gout, non-crystal proven - diagnosed about 5 years ago - recalls R1st MTP podagra at the time - was seen locally in [place], [place] by siding mechanic at the time who told patient he has gout. No h/o crystal proven diagnosis. Has experienced gouty flares over MTP-11 joints b/l, dorsum of feet and more recently ankles b/l Last flare - last week in which he is in the tail end of - currently finishing a medrol dose rosibel for the gout flare. H/o obesity, hypertriglyceridemia - per patient has about 10 gout flares a year. No known FHx of gout. States his diet is not particularly high in red meat however tries to limit. Does not drink soda/pop, admits to drinking alcoholic beverages weekly, more so bourbon than beer but sometimes beer. Not on any diuretic therapy. Has never been on urate lowering drugs such as allopurinol or febuxostat. No h/o tophi. No h/o CKD; + h/o nephrolithiasis 3 years ago - passed spontaneously Rheumatologic ROS (+) in bold; all rest are negative/denies history of: Chest pain, shortness of breath, history of pleural effusion or pericarditis, oral/nasal ulcers, photosensitivity, rash, history of DVT/PE/&or miscarriages, renal disease, seizures, dry eyes, dry mouth, cervical lymphadenopathy or parotid gland swelling, raynaud's phenomenon, alopecia, psoriasis, history of iritis/uveitis or scleritis, nail pitting, dactylitis, history of sacroiliitis or inflammatory bowel disease, arm weakness in raising arms above head, leg weakness in standing up from a seated position, skin tightening, dysphagia, changes in vision, scalp tenderness, jaw claudication, stiffness in shoulders/hip girdle, auricular or nasal chondritis RHEUMATOLOGY FOLLOW UP VISIT 05/21/2023: Patient seen and examined at [facility] ([facility]) rheumatology clinic for a follow up visit. Diagnostics since last visit: 04/03: sCr/LFT WNL; uric acid 11.0 CBC WNL Today, first visit with me since 08/2022. Currently on allopurinol 200mg/day and daily colcrys 0.6mg/day Since last visit he had a flare over the summer while traveling in [place] per patient drinking copius amounts of beer and experienced L1st MTP podagra - got over flare via taking colchicine (flare dosing) and using concomitant ice. Recently labs sUA 11.0 from 7.2; Feels his sUA got elevated because of his increased alcohol intake Answers submitted by the patient for this visit: Review of Systems Rheumatology (Submitted on 05/17/2023) Fever : No Recent Unintentional Weight Change: No Eye Pain: No Eye Redness: No Vision Disturbance: No Eye Dryness: No Nose Bleeds: No Sores in your Mouth: No Trouble Swallowing: No Dry Mouth: No Chest Pain: No Leg Swelling: No A Cough: No Shortness of Breath: No Pain with Breathing: No Heartburn: No Abdominal Pain: No Diarrhea: No Black Tarry Stools: No Blood in Urine: No Pain or Burning with Urination: No Joint Pain or Stiffness: No Muscle Weakness: No Muscle Aches: No Joint Swelling: No Morning Stiffness in Joints: No A Rash: No Skin Color Changes: No Hair Loss: No Nail Changes: No Headaches: No Numbness: No Memory Loss: No Swollen Glands: No OBJECTIVE 05/21/23 1615 BP: 127/69 BP Site: Right Arm BP Position: Sitting BP Cuff Size: Large Adult Pulse: 112 Temp: (!) 35.9 C (96.6 F) TempSrc: Skin Weight: 135.4 kg (298 lb 8 oz) General: No acute distress. Eye: Pupils are equal, round and reactive to light, Extraocular movements are intact, Normal conjunctiva. HENT: Oral mucosa is moist, no oral ulcerations, no areas of alopecia appreciated Neck: Supple, Non-tender. No lymphadenopathy Respiratory: Lungs are clear to auscultation, Respirations are non-labored, Breath sounds are equal. Cardiovascular: Normal rate, Regular rhythm. Gastrointestinal: soft, non-tender, non-distended. Musculoskeletal: no synovitis appreciated Integumentary: Warm, Dry. No rash Neurologic: Alert, Oriented. Psychiatric: Cooperative. IMPRESSION & RECOMMENDATIONS Mr. Ubaldo Rehman is a 33 year old male who has a past medical history of concussion, former smoker, gout, smoking who presents for rheumatologic evaluation. Patient is from [place], [place] with minimal records in [facility] system. Diagnostics since last visit: 04/03: sCr/LFT WNL; uric acid 11.0 CBC WNL Non-Crystal Proven Non-Tophaceous Gout -clinical h/o gout since ~2018 -flares over MTP1, dorsum of feet, ankles in the past -no h/o CKD or diuretic use -h/o nephrolithiasis -recent labs with increase in sUA 11.0 and since last visit patient experienced gouty flare L1st MTP d/t beer intake: counseled patient regarding low purine diet and limiting beer/alcohol, red meat, shellfish/shrimp, high fructose corn syrup -will follow up labs; expressed that sUA may not be accurate given he is on tail end of gout flare for which he is taking medrol dose rosibel. If persistently high sUA will increase allopurinol/ULT dose. -information, education and counseling provided to patient on gout, allopurinol, colchicine and low purine diet and discussed our goals to initiate urate lowering therapy in-conjunction with flare prophylaxis in colchicine and treat to target sUA<6 over time to help minimize gout flares and joint damage. -recommend weight loss; discussed correlation of gout and metabolic syndrome in patient given his h/o advanced BMI and HLD -recommend smoking cessation -if difficulty over time achieving goal sUA may consider uloric. I spent a total of 30 minutes on the date of the service which included preparing to see the patient, [id number] patient care, completing clinical documentation, obtaining and/or reviewing separately obtained history, performing a medically appropriate examination, counseling and educating the patient/family/caregiver, ordering medications, tests, or procedures, communicating results to the patient/family/caregiver and care coordination (not separately reported). Jasbir Aranda MD Rheumatology Staff documented in this encounter [facility] 03-27-2023 Miscellaneous Notes Most recent Rheumatology visit: 08/27/2022 (with Jasbir Aranda) Recent Office Visits - This Specialty 08/27/2022 Acute idiopathic gout, unspecified site Rheumatology Jasbir Aranda MD Upcoming Rheumatology Appointments - Next 365 Days Visit Type Date Time Department [facility] 05/21/2023 4:00 PM [facility] CBC: CBC Latest Ref Rng & Units 01/01/2023 03/25/2023 WBC 3.70 - 11.00 k/uL 6.05 10.11 HEMOGLOBIN 13.0 - 17.0 g/dL 14.4 16.5 HEMOGLOBIN, MILAGRO 14.0 - 18.0 g/dL - - HEMATOCRIT 39.0 - 51.0 % 45.8 51.5(H) PLATELETS 150 - 400 k/uL 229 279 ABS NEUT (ANC) 1.45 - 7.50 k/uL 2.60 6.23 ABS NEUT, MILAGRO 2.0 - 8.1 k/uL - - ABS LYMP, MILAGRO 1.0 - 5.5 k/uL - - ABS LYMPH 1.00 - 4.00 k/uL 2.06 2.51 Vitamin D: None on file in the last 6 months LFT: CMP Latest Ref Rng & Units 01/01/2023 03/25/2023 SODIUM 136 - 144 mmol/L 141 137 POTASSIUM 3.7 - 5.1 mmol/L 4.6 4.5 CHLORIDE 97 - 105 mmol/L 104 101 CO2 22 - 30 mmol/L 28 19(L) GLUCOSE 74 - 99 mg/dL 90 77 BUN 9 - 24 mg/dL 18 24 CREATININE 0.73 - 1.22 mg/dL 1.04 1.05 CALCIUM, TOTAL 8.5 - 10.2 mg/dL 9.9 9.9 AST 14 - 40 U/L 19 19 ALT 10 - 54 U/L 54 30 ALKALINE PHOSPHATASE 38 - 113 U/L 63 70 Hepatic Function: Creatinine: Creatinine Latest Ref Rng & Units 01/01/2023 03/25/2023 CREAT 0.73 - 1.22 mg/dL 1.04 1.05 ESR/CRP: None on file in the last 6 months Uric Acid: Uric Acid Latest Ref Rng & Units 01/01/2023 03/25/2023 URIC ACID 4.0 - 8.1 mg/dL 7.2 11.0(H) Open Standing (Multiple Instance) Lab Orders None Open Future (Single Instance) Lab Orders None documented in this encounter [facility] 01-09-2023 Miscellaneous Notes Spoke to patient in regards to message from Dr. Aranda to see his willingness to increase allopurinol due to uric acid level goal. Patient will increase allopurinol to 200 mg. Eden Morales RN documented in this encounter [facility] 08-27-2022 Instructions Jasbir Aranda MD - 08/27/2022 3:54 PM EST Please read over information provided on -GOUT Medications we may consider starting in the near future such as -ALLOPURINOL (to help reduce the uric acid level in your blood) we will likely start 100mg daily in the near future -COLCHICINE (to help PREVENT a gout attack while on allopurinol)we will likely start 0.6mg daily in the near future Please read over information provided on LOW PURINE DIET - limit and avoid diet high in red meat, shell fish, shrimp, beer/alcohol, high fructose corn. Recommend weight loss, blood pressure control I will send you a short course of prednisone - please take as written IF and only if you experience signs/symptoms of gouty flare. Message on my chart later this week and if your labs look safe we will get started on therapy which I will send to your pharmacy documented in this encounter [facility] 08-27-2022 History of Present illness Narrative Images from the original note were not included. Rheumatology History & Physical Patient name: Ubaldo Rehman Requesting provider: No att. providers found SUBJECTIVE History of Present Illness: Mr. Ubaldo Rehman is a 32 year old male who has a past medical history of concussion, former smoker, gout, smoking who presents for rheumatologic evaluation. Patient is from [place], [place] with minimal records in [facility] system. PSHx: He has a past surgical history that includes none. Allergies: He is allergic to pollen. Current Meds: lipitor, colchicine PRN flare Family History: family history includes Arthritis in his paternal grandmother; Emphysema in his maternal grandfather; Heart in his maternal grandmother; Hypertension in his maternal grandmother. Social History: He reports that he quit smoking about 13 years ago. His smoking use included cigarettes. He has never used smokeless tobacco. He reports current alcohol use of about 15.0 standard drinks per week. He reports that he does not use drugs. Labs: CBC Latest Ref Rng & Units 12/11/2006 HEMOGLOBIN, MILAGRO 14.0 - 18.0 g/dL 15.2 ABS NEUT, MILAGRO 2.0 - 8.1 k/uL 6.7 ABS LYMP, MILAGRO 1.0 - 5.5 k/uL 2.4 ESR, WSR Latest Ref Rng & Units 12/11/2006 SED RATE, MILAGRO 0 - 10 mm/hr 18(H) Urinalysis Latest Ref Rng & Units 04/10/2008 03/12/2006 PROTEIN, URINE Neg mg/dL TRACE neg Labs: 2007: elevated ESR 18 RHEUMATOLOGY EVALUATION 08/27/2022 Patient seen and examined - today is his initial evaluation with [facility] rheumatology. H/o gout, non-crystal proven - diagnosed about 5 years ago - recalls R1st MTP podagra at the time - was seen locally in [place], [place] by siding mechanic at the time who told patient he has gout. No h/o crystal proven diagnosis. Has experienced gouty flares over MTP-11 joints b/l, dorsum of feet and more recently ankles b/l Last flare - last week in which he is in the tail end of - currently finishing a medrol dose rosibel for the gout flare. H/o obesity, hypertriglyceridemia - per patient has about 10 gout flares a year. No known FHx of gout. States his diet is not particularly high in red meat however tries to limit. Does not drink soda/pop, admits to drinking alcoholic beverages weekly, more so bourbon than beer but sometimes beer. Not on any diuretic therapy. Has never been on urate lowering drugs such as allopurinol or febuxostat. No h/o tophi. No h/o CKD; + h/o nephrolithiasis 3 years ago - passed spontaneously Rheumatologic ROS (+) in bold; all rest are negative/denies history of: Chest pain, shortness of breath, history of pleural effusion or pericarditis, oral/nasal ulcers, photosensitivity, rash, history of DVT/PE/&or miscarriages, renal disease, seizures, dry eyes, dry mouth, cervical lymphadenopathy or parotid gland swelling, raynaud's phenomenon, alopecia, psoriasis, history of iritis/uveitis or scleritis, nail pitting, dactylitis, history of sacroiliitis or inflammatory bowel disease, arm weakness in raising arms above head, leg weakness in standing up from a seated position, skin tightening, dysphagia, changes in vision, scalp tenderness, jaw claudication, stiffness in shoulders/hip girdle, auricular or nasal chondritis OBJECTIVE 08/27/22 1450 BP: 149/86 Pulse: 82 Weight: 131.5 kg (290 lb) Height: 172.7 cm (5' 8) General: No acute distress. Eye: Pupils are equal, round and reactive to light, Extraocular movements are intact, Normal conjunctiva. HENT: Oral mucosa is moist, no oral ulcerations, no areas of alopecia appreciated Neck: Supple, Non-tender. No lymphadenopathy Respiratory: Lungs are clear to auscultation, Respirations are non-labored, Breath sounds are equal. Cardiovascular: Normal rate, Regular rhythm. Gastrointestinal: soft, non-tender, non-distended. Musculoskeletal: dorsum of R foot mildly erythematous with TTP Integumentary: Warm, Dry. No rash Neurologic: Alert, Oriented. Psychiatric: Cooperative. IMPRESSION & RECOMMENDATIONS Mr. Ubaldo Rehman is a 32 year old male who has a past medical history of concussion, former smoker, gout, smoking who presents for rheumatologic evaluation. Patient is from [place], [place] with minimal records in [facility] system. Non-Crystal Proven Non-Tophaceous Gout -clinical h/o gout since ~2017 -flares over MTP1, dorsum of feet, ankles in the past -no h/o CKD or diuretic use -h/o nephrolithiasis -average ~10 gout flares a year -will follow up labs, imaging studies at this time; expressed that sUA may not be accurate given he is on tail end of gout flare for which he is taking medrol dose rosibel -information, education and counseling provided to patient on gout, allopurinol, colchicine and low purine diet and discussed our goals to initiate urate lowering therapy in-conjunction with flare prophylaxis in colchicine and treat to target sUA<6 over time to help minimize gout flares and joint damage. -recommend weight loss; discussed correlation of gout and metabolic syndrome in patient given his h/o advanced BMI and HLD -recommend smoking cessation I spent a total of 60 minutes on the date of the service which included preparing to see the patient, [id number] patient care, completing clinical documentation, obtaining and/or reviewing separately obtained history, performing a medically appropriate examination, counseling and educating the patient/family/caregiver, ordering medications, tests, or procedures, communicating results to the patient/family/caregiver and care coordination (not separately reported). Jasbir Aranda MD Rheumatology Staff documented in this encounter [facility] Evaluation note No assessment inform ation available [facility] Work Phone: Evaluation note Diagnosis Acute idiopathic gout, unspecified site- Primary Pain in joint, multiple sites History of joint swelling History of cigar smoking [facility] Diagnosis Acute idiopathic gout, unspecified site Pain in joint, multiple sites History of joint swelling History of cigar smoking [facility] Diagnosis Acute idiopathic gout, unspecified site- Primary Pain in joint, multiple sites History of joint swelling [facility] Diagnosis Acute idiopathic gout, unspecified site- Primary History of joint swelling Pain in joint, multiple sites [facility] Diagnosis Acute idiopathic gout, unspecified site- Primary [facility] Diagnosis Acute idiopathic gout, unspecified site- Primary Pain in joint, multiple sites [facility] Diagnosis Acute idiopathic gout, unspecified site [facility] Diagnosis Acute idiopathic gout, unspecified site- Primary Pain in joint, multiple sites [facility] Diagnosis Viral illness- Primary Unspecified viral infection, in conditions classified elsewhere and of unspecified site [facility] Diagnostic Procedure Only (Routine) - Authorized Specialty Diagnoses / Procedures Referred By Contac t Referred To Contact XR IMAGING Diagnoses Acute idiopathic gout, unspecified site Pain in joint, multiple sites History of joint swelling History of cigar smoking Procedures XR ANKLE GENERAL 3V AP/LAT/OBL BILATERAL RADEX ANKLE COMPLETE MINIMUM 3 VIEWS Jasbir Aranda MD [address] [place] [address] Xr Imaging Referral ID Status Reason Start Date Expiration Date Visits Requested Visits Authorized [id number] Authorized Auto-Generat ed Referral 08/27/2022 09/26/2023 1 1 * Diagnostic Procedure Only (Routine) - Authorized Specialty Diagnoses / Procedures Referred By Contac t Referred To Contact XR IMAGING Diagnoses Acute idiopathic gout, unspecified site Pain in joint, multiple sites History of joint swelling History of cigar smoking Procedures XR FOOT GENERAL 3V AP/LAT/OBL BILATERAL RADEX FOOT COMPLETE MINIMUM 3 VIEWS Jasbir Aranda MD [address] [place] [address] Xr Imaging Referral ID Status Reason Start Date Expiration Date Visits Requested Visits Authorized [id number] Authorized Auto-Generat ed Referral 08/27/2022 09/26/2023 1 [facility] Diagnostic Procedure Only (Routine) - Pending Review Specialty Diagnoses / Procedures Referred By Contac t Referred To Contact XR IMAGING Diagnoses Acute idiopathic gout, unspecified site Pain in joint, multiple sites Procedures XR FOOT GENERAL 3V AP/LAT/OBL BILATERAL RADEX FOOT COMPLETE MINIMUM 3 VIEWS Jasbir Aranda MD [address] [place] [address] Xr Imaging Referral ID Status Reason Start Date Expiration Date Visits Requested Visits Authorized [id number] Pending Review Auto-Generat ed Referral 08/29/2022 09/28/2023 1 1 * Diagnostic Procedure Only (Routine) - Pending Review Specialty Diagnoses / Procedures Referred By Contac t Referred To Contact XR IMAGING Diagnoses Acute idiopathic gout, unspecified site Pain in joint, multiple sites Procedures XR ANKLE GENERAL 3V AP/LAT/OBL BILATERAL RADEX ANKLE COMPLETE MINIMUM 3 VIEWS Jasbir Aranda MD [address] [place] [address] Xr Imaging Referral ID Status Reason Start Date Expiration Date Visits Requested Visits Authorized [id number] Pending Review Auto-Generat ed Referral 08/29/2022 09/28/2023 1 1 [facility] Summary Purpose Family History No Family History Records FoundNo Family History Records FoundNo Family History Records Found Advance Directives Advance Directive Response Recorded Date/ Time Living Will No June 19 3:18pm Power of District Ranger No June 19, 2019 3:18pm Chief Complaint and Reason for Visit Chief Complaint OBESITY Additional Source Comments (unrecognized sect ion and content) No Status Records FoundNo Status Records FoundNo Status Records Found INFORMATION SOURCE (unrecogn ized section and content) DATE CREATED AUTHOR 05/18/2020 [facility] ([place]) DATE CREATED AUTHOR AUTHOR'S ORGANIZ ATION 05/22/2022 [facility] DATE CREATED AUTHOR AUTHOR'S ORGANIZ ATION 02/16/2024 [facility] Goals (unrecognized section and content) Goals may be documented in a n alternate section Source Comments (unrecognize d section and content) In the event this informatio n is protected by the Federal Confidentiality of Alcohol and Drug Abuse Patient Records regulations: The Federal rules restrict any use of the information to criminally investigate or prosecute any alcohol or drug abuse patient.[facility] the event this information is protected by the Federal Confidentiality of Alcohol and Drug Abuse Patient Records regulations: The Federal rules restrict any use of the information to criminally investigate or prosecute any alcohol or drug abuse patient.[facility] the event this information is protected by the Federal Confidentiality of Alcohol and Drug Abuse Patient Records regulations: The Federal rules restrict any use of the information to criminally investigate or prosecute any alcohol or drug abuse patient.[facility] the event this information is protected by the Federal Confidentiality of Alcohol and Drug Abuse Patient Records regulations: The Federal rules restrict any use of the information to criminally investigate or prosecute any alcohol or drug abuse patient.[facility] the event this information is protected by the Federal Confidentiality of Alcohol and Drug Abuse Patient Records regulations: The Federal rules restrict any use of the information to criminally investigate or prosecute any alcohol or drug abuse patient.[facility] the event this information is protected by the Federal Confidentiality of Alcohol and Drug Abuse Patient Records regulations: The Federal rules restrict any use of the information to criminally investigate or prosecute any alcohol or drug abuse patient.[facility] the event this information is protected by the Federal Confidentiality of Alcohol and Drug Abuse Patient Records regulations: The Federal rules restrict any use of the information to criminally investigate or prosecute any alcohol or drug abuse patient.[facility] the event this information is protected by the Federal Confidentiality of Alcohol and Drug Abuse Patient Records regulations: The Federal rules restrict any use of the information to criminally investigate or prosecute any alcohol or drug abuse patient.[facility] the event this information is protected by the Federal Confidentiality of Alcohol and Drug Abuse Patient Records regulations: The Federal rules restrict any use of the information to criminally investigate or prosecute any alcohol or drug abuse patient.[facility] the event this information is protected by the Federal Confidentiality of Alcohol and Drug Abuse Patient Records regulations: The Federal rules restrict any use of the information to criminally investigate or prosecute any alcohol or drug abuse patient.[facility] the event this information is protected by the Federal Confidentiality of Alcohol and Drug Abuse Patient Records regulations: The Federal rules restrict any use of the information to criminally investigate or prosecute any alcohol or drug abuse patient.[facility] the event this information is protected by the Federal Confidentiality of Alcohol and Drug Abuse Patient Records regulations: The Federal rules restrict any use of the information to criminally investigate or prosecute any alcohol or drug abuse patient.[facility] the event this information is protected by the Federal Confidentiality of Alcohol and Drug Abuse Patient Records regulations: The Federal rules restrict any use of the information to criminally investigate or prosecute any alcohol or drug abuse patient.[facility] Reason for Visit (unrecogniz ed section and content) Reason Onset Date Comments Refill Request 01/09/2023 Reason Comments Refill Request Reason Comments Gout Reason Comments Sore Throat SHERMAN started today Reason Onset Date Comments Refill Request 10/04/2024 Care Teams (unrecognized sec tion and content) Manager Requirements Relationship Specialty Start Date End Date Gayathri Salinas (Software Quality Engineer) [address] [place] [address] PCP - General Internal Medicine 12/04/23 Manager Requirements Relationship Specialty Start Date End Date Gayathri Salinas NP [address] [place] [id number] PCP - General Internal Medicine 12/04/23 FOR RECORDS PERTAINING TO PATIENTS WHO ARE OR HAVE BEEN ENROLLED IN A CHEMICAL DEPENDENCY/SUBSTANCEABUSE PROGRAM, SOME INFORMATION MAY BE OMITTED. This clinical summary was aggregated from multiple sources. Caution should be exercised in using it in the provision of clinical care. This summary normalizes information from multiple sources, and as a consequence, information in this document may materially change the coding, format and clinical context of patient data. In addition, data may be omitted in some cases. CLINICAL DECISIONS SHOULD BE BASED ON THE PRIMARY CLINICAL RECORDS. [facility] [employer] [facility]. provides no warranty or guarantee of the accuracy or completeness of information in this document.
[2025-07-18 21:46] LABS: Mucous, Urine 0 SEEN /hpf (<or=2+); Squamous Epithelial Cells - UA 0 SEEN /hpf (0-5)
[2025-07-18 22:02] LABS: Color, Urine Yellow (Yellow); Glucose, Dipstick Normal (Normal); Ketone-Dipstick Negative (Negative); Leukocyte Esterase-Dipstick Negative /ul (Negative); Nitrite-Dipstick Negative (Negative); Occult Blood-Urine 10 /ul (Negative); Protein-Dipstick 15 mg/dl (Negative); Specific Gravity, Urine 1.020 (1.002-1.030); Urine Bilirubin Dipstick Negative (Negative)
[2025-07-18 22:11] LABS: Red Blood Cells-Urine 0-5 SEEN /hpf (0-5)
== END 2025-07-18 21:53 | disposition left against medical advice (07) ==
LOC: ED 20:47
PROVIDERS: Emergency Provider Surgery; Visit Provider Surgery
DX: N47.2 Paraphimosis (principal); M10.9 Gout, unspecified; Z79.899 Other long term (current) drug therapy
CPT/HCPCS: 81001; 99282